=== PATIENT | female | born 1950 | race Caucasian/White ===

== ENCOUNTER 2019-01-08 20:56 | Emergency (ER) | payer MEDICARE, MEDICAID, SELFPAY ==
[2019-01-08 21:03] VITALS: BP 140/80; PULSE 93; RESP 18; TEMP 36.6; O2SAT 97
--- NOTE | 2019-01-08 21:34 | ED.GENADUL_ITS ---
Discharge Plan Disposition Patient Disposition: HOME Discharge Details Chief Complaint: RashLesion Clinical Impression: Infected sebaceous cyst Primary Care Provider: Corazon Prater ED Provider: Hima Lafleur Home Meds and New Rx's Prescriptions: New cephalexin [Keflex] 500 mg capsule 500 mg PO QID Qty: 39 RF: 0 sulfamethoxazole-trimethoprim [Bactrim DS] 800-160 mg tablet 1 tab PO DAILY Qty: 19 RF: 0 Continued citalopram [Celexa] 40 MG tablet 40 mg PO DAILY Qty: 90 RF: 1 bupropion HCl (smoking deter) 150 MG tablet extended release 12 hr 150 mg PO karol Qty: 90 RF: 1 Symbicort 10.2 GM HFA aerosol inhaler 1 puff Inhalation BID Qty: 1 RF: 6 levothyroxine 75 MCG tablet 75 mcg PO DAILY Qty: 90 RF: 3 albuterol sulfate 1.25 MG/3 ML solution for nebulization 2 puff Inhalation PRN PRNRF: 0 albuterol sulfate 2.5 MG/3 ML solution for nebulization 2.5 mg Inhalation Q4H WHILE AWAKE Qty: 30 RF: 0 albuterol sulfate [ProAir HFA] 90 mcg/actuation Hfa Aerosol Inhaler 2 puff Inhalation Q4H PRNRF: 0 Spiriva Respimat 1.25 mcg/actuation Mist 2 puff Inhalation BID RF: 0 Discharge Instructions Instructions: Abscess (ED) Additional Instructions: Please follow-up with general surgery. You should be seen in follow-up within the next few days. Call for an appointment. Please take antibiotics as prescribed. Sure to complete the full courses. Monitor skin lesion closely. Return to the ER for any worsening or new concerning symptoms including increasing pain or fever. Referrals: Anastasiia Queen MD [ [facility] STAFF PHYSICIAN] - Medical Decision Making 21:43 -- 68yo f with raised painful lesion posterior neck, now with thick white sebaceous and purulent discharge. Afebrile. Susecpt infected sebaceous cyst. Plan to anesthetize locally and incised and drain. Will give ativan for anxiety. Will give bactrim and keflex. 22:45 --discussed the risks and benefits of procedure with the patient and she provided informed consent. Incision and drainage performed. Large amount of thick white discharge expressed. Patient tolerated procedure well. Plan for follow-up with general surgery at the end of this week for reassessment. HPI General Mode of arrival: ambulatory . Date/Time Provider Initiated Documentation: 01/08/19 21:32 . Limitations to Documentation: no limitations . Information obtained by: patient . HPI Narrative: 68yo f here with painful, swollen lump on the back of her neck. Patient notes that she had a marble sized subcutaneous lump posterior neck chronically for years. She was told that the lump was a sebaceous cyst. About 1.5 weeks ago she noticed that the lump seemed to be getting larger and more painful. Yesterday lesion started to have some thick white discharge. Symptoms are severe. Constant. No modifiers. No associated fever. No other rash. Related Data Home Medications Medication Instructions Recorded Confirmed bupropion HCl (smoking deter) 150 mg PO karol #90 tab-cap 08/11/15 citalopram [Celexa] 40 mg PO DAILY #90 tab 08/11/15 01/08/19 Symbicort 1 puff INHALATION BID #1 inhaler 02/09/16 01/08/19 levothyroxine 75 mcg PO DAILY #90 tab-cap 02/26/16 01/08/19 albuterol sulfate 2 puff INHALATION PRN PRN 07/10/16 01/08/19 albuterol sulfate 2.5 mg INHALATION Q4H WHILE AWAKE 09/27/16 01/08/19 #30 vial Spiriva Respimat 2 puff INHALATION BID 01/08/19 01/08/19 albuterol sulfate [ProAir HFA] 2 puff INHALATION Q4H PRN 01/08/19 01/08/19 cephalexin [Keflex] 500 mg PO QID #39 cap 01/08/19 sulfamethoxazole-trimethoprim 1 tab PO DAILY #19 tab 01/08/19 [Bactrim DS] Previous Rx's Medication Instructions Recorded albuterol sulfate 2.5 mg INHALATION Q4H WHILE AWAKE 09/27/16 #30 vial cephalexin [Keflex] 500 mg PO QID #39 cap 01/08/19 sulfamethoxazole-trimethoprim 1 tab PO DAILY #19 tab 01/08/19 [Bactrim DS] Allergies Allergy/AdvReac Type Severity Reaction Status Date / Time codeine AdvReac Severe HYPERSENSIT Unverified 01/08/19 21:20 CONY erythromycin base AdvReac Intermediate NAUSEA Unverified 01/08/19 21:20 latex AdvReac Unverified 01/08/19 21:20 General Stated Complaint: RashLesion ANALI: 3 Review of Systems Constitutional Reports as per HPI Integumentary/Breasts Reports as per HPI [facility] Surgical History Cholecystectomy Fracture, Open Treatment Family History Mother Personal history of malignant neoplasm Father Essential hypertension Heart disease Stroke Brother Essential hypertension Grandfather Essential hypertension Heart disease Hyperlipidemia Myocardial infarction Grandfather No problems noted. Grandmother TB (tuberculosis) Grandmother Diabetes Pneumonia Social History Smoking/Tobacco Use Status: Current every day Tobacco Type: cigarettes Drug use: Never Do you feel safe in your relationship?: Yes Exam Const General: cooperative and no acute distress Neck Neck: full ROM, trachea midline, supple and no lymphadenopathy noted Resp Auscultation: clear to auscultation bilaterally, no rales, no rhonchi and no wheezes Cardio Jugular venous pressure: no JVD Rate: regular rate and not tachycardic Rhythm: regular rhythm Skin Other: 3 x 4 cm raised cutaneous lesion with thick white discharge and some purulence, tender, localized erythema Neuro General: alert and awake Psych Affect: anxious affect Course Vital Signs Temperature 36.6 C 01/08/19 21:03 Pulse 93 H 01/08/19 21:03 Respiratory Rate 18 01/08/19 21:03 Blood Pressure 140/80 01/08/19 21:03 Pulse Oximetry 97 01/08/19 21:03 Temperature 36.6 C 01/08/19 21:03 Temperature Source Temporal Artery Scan 01/08/19 21:03 Pulse 93 H 01/08/19 21:03 Respiratory Rate 18 01/08/19 21:03 Blood Pressure 140/80 01/08/19 21:03 Blood Pressure Position Sitting 01/08/19 21:03 Pulse Oximetry 97 01/08/19 21:03 Oxygen Delivery Method Room Air 01/08/19 21:03 Oxygen Flow Rate 0 01/08/19 21:03 Pain Level 3 01/08/19 21:03 Procedures Abscess I/D Site: Neck Sedation/analgesia: None Local Anesthetic: Lidocaine 1% and With Epi Amount of anesthesia used (mL): 3 Technique: Incised with #11 Blade (superficial incision made) Amount of fluid expressed (mL): 10 Irrigation: Yes Packing used?: None Complications: Pain
[2019-01-08] MEDS: Cephalexin 500 MG CAP PO (21:37)
[2019-01-08] MEDS: Sulfameth/Trimeth DS TAB 1 TAB PO (21:37)
[2019-01-08] MEDS: LORazepam 1 MG TAB PO (21:37)
== END 2019-01-08 22:50 | disposition home or self-care (01) ==
PROVIDERS: Emergency Provider Student in an Organized Health Care Education/Training Program; PCP Family Medicine
DX: L72.3 Sebaceous cyst (principal); F41.9 Anxiety disorder, unspecified
CPT/HCPCS: 36416; 82962; 99283

== ENCOUNTER → 2019-01-09 10:26 | Outpatient (BNVA) | payer MEDICARE, MEDICAID, SELFPAY | PROVIDERS: PCP Family Medicine; Referring Provider Family Medicine; Visit Provider Surgery | DX: L72.3 Sebaceous cyst (principal); L08.9 Local infection of the skin and subcutaneous tissue, unspecified | CPT/HCPCS: 10060; 99202; 99213 ==

== ENCOUNTER → 2019-01-15 11:42 | Outpatient (BNVA) | payer MEDICARE, MEDICAID, SELFPAY | PROVIDERS: PCP Family Medicine; Referring Provider Family Medicine; Visit Provider Physical Therapy Assistant | DX: Z48.817 Encounter for surgical aftercare following surgery on the skin and subcutaneous tissue (principal); L72.3 Sebaceous cyst; L08.9 Local infection of the skin and subcutaneous tissue, unspecified | CPT/HCPCS: 99211 ==

== ENCOUNTER → 2019-01-26 08:55 | Outpatient (BNVA) | payer MEDICARE, MEDICAID, SELFPAY | PROVIDERS: PCP Family Medicine; Referring Provider Family Medicine; Visit Provider Physical Therapy Assistant | DX: L72.3 Sebaceous cyst (principal) | CPT/HCPCS: 99211; 99213 ==

== ENCOUNTER → 2019-03-09 10:51 | Outpatient (BNVA) | payer MEDICARE, MEDICAID, SELFPAY | PROVIDERS: PCP Family Medicine; Referring Provider Family Medicine; Visit Provider Physical Therapy Assistant | DX: L72.9 Follicular cyst of the skin and subcutaneous tissue, unspecified (principal); J44.9 Chronic obstructive pulmonary disease, unspecified; F17.210 Nicotine dependence, cigarettes, uncomplicated | CPT/HCPCS: 11421; 12041; 99213 ==

== ENCOUNTER 2019-04-25 12:27 | Emergency (ER) | payer MEDICARE, MEDICAID, SELFPAY ==
[2019-04-25 12:30] VITALS: BP 143/54; PULSE 74; RESP 14; TEMP 36.9; O2SAT 97
--- NOTE | 2019-04-25 12:30 | W.ED.GENAD ---
Discharge Plan Disposition Patient Disposition: HOME Condition: Good Discharge Details Chief Complaint: Orthopedic Clinical Impression: Sprain of right shoulder Primary Care Provider: Corazon Prater ED Provider: Tariq Sun Home Meds and New Rx's Prescriptions: New lidocaine [Lidoderm] 1 PATCH patch 1 patch Topical Q24H Qty: 4 RF: 0 No Action citalopram [Celexa] 40 MG tablet 40 mg PO DAILY Qty: 90 RF: 1 Symbicort 10.2 GM HFA aerosol inhaler 1 puff Inhalation BID Qty: 1 RF: 6 levothyroxine 75 MCG tablet 75 mcg PO DAILY Qty: 90 RF: 3 albuterol sulfate 1.25 MG/3 ML solution for nebulization 2 puff Inhalation PRN PRNRF: 0 albuterol sulfate 2.5 MG/3 ML solution for nebulization 2.5 mg Inhalation Q4H WHILE AWAKE Qty: 30 RF: 0 albuterol sulfate [ProAir HFA] 90 mcg/actuation Hfa Aerosol Inhaler 2 puff Inhalation Q4H PRNRF: 0 Spiriva Respimat 1.25 mcg/actuation Mist 2 puff Inhalation BID RF: 0 Discharge Instructions Instructions: Shoulder Sprain (ED) Additional Instructions: At this time your x-ray shows no evidence of fracture. Please use the Lidoderm patch as directed. Please use the sling for comfort, however make sure at least 5-10 times per day you are moving the arm in all directions to maintain good shoulder mobility. Please contact your orthopedic surgeon at the [facility] for close follow-up. If you notice any worsening of your symptoms, or any new symptoms such as vomiting, diarrhea, fever, chills, shortness of breath, chest pain, numbness, weakness, or fainting , please return immediately to the emergency department for reevaluation. Please follow up with your primary care provider as soon as possible for reassessment and reevaluation. As always, it was a pleasure participating in your medical care today. Referrals: Corazon Prater [Primary Care Provider] - Medical Decision Making This is a pleasant 69-year-old female who presents today for evaluation of right shoulder pain. It occurred while she was throwing a ball. Is been present for the last week, worsened with movement. No associated numbness or tingling, no chest symptoms. Patient does have a positive Vancouver's test, she also has reproducible tenderness over the infraspinatus and scapular spine. Suspect potential labral injury with questionable rotator cuff impingement. She does demonstrate notable reduction in range of motion secondary to tight muscles. We will get an x-ray to rule out acute fracture, however I do feel that she will require orthopedic follow-up with her specialist at [facility]. 1:42 PM X-ray results have returned, no evidence of acute fracture dislocation. I still feel that the signs and symptoms of the patient clinically are consistent with potential labral injury and potential rotator cuff injury. We will give a sling for home use, however recommend regular shoulder exercises times to help keep the shoulder limber and avoid frozen shoulder syndrome. Discussed importance of follow-up with the [facility]. Recommend continued NSAIDs outpatient. I have extensively reviewed the treatment plan and discharge instructions with the patient and their family. I have addressed all patient concerns at this time. The patient and family was made aware of what symptoms to monitor for that would warrant a return to the emergency department. Discussed the plan with the patient and family, they demonstrate verbal understanding and agreement with our assessment and plan at this time. HPI General Date/Time Provider Initiated Documentation: 04/25/19 12:29. HPI Narrative: This is a 69-year-old female with a past medical history of osteoporosis and osteopenia, who presents today for evaluation of right shoulder and scapular pain. She is right-hand dominant. Patient states that one week ago she was throwing a ball with her right arm, when she felt a pop in the tear. Since then she has had notable pain in her right shoulder with movement in all directions. She denies any associated numbness tingling or weakness. Pain is located at the posterior shoulder, slightly to the scapula, but not in the humeral head. She denies any associated numbness tingling. She denies any deformity. She has taken occasional NSAIDs which does seem to slightly improve the pain but then it comes back once the NSAIDs were up. She denies any history of cardiac disease, she denies any chest pain, shortness of breath or chest tightness. She denies any other complaints or modifying factors at this time. She does see [facility] in [place] for other previous orthopedic needs. Related Data Home Medications Medication Instructions Recorded Confirmed citalopram [Celexa] 40 mg PO DAILY #90 tab 11/09/15 06/07/19 Symbicort 1 puff INHALATION BID #1 inhaler 02/09/16 03/09/19 levothyroxine 75 mcg PO DAILY #90 tab-cap 02/26/16 03/09/19 albuterol sulfate 2 puff INHALATION PRN PRN 07/10/16 03/09/19 albuterol sulfate 2.5 mg INHALATION Q4H WHILE AWAKE 09/27/16 03/09/19 #30 vial Spiriva Respimat 2 puff INHALATION BID 01/08/19 03/09/19 albuterol sulfate [ProAir HFA] 2 puff INHALATION Q4H PRN 01/08/19 03/09/19 lidocaine [Lidoderm] 1 patch TOPICAL Q24H #4 patch 04/25/19 Previous Rx's Medication Instructions Recorded albuterol sulfate 2.5 mg INHALATION Q4H WHILE AWAKE 09/27/16 #30 vial lidocaine [Lidoderm] 1 patch TOPICAL Q24H #4 patch 04/25/19 Allergies Allergy/AdvReac Type Severity Reaction Status Date / Time Antihistamines - Alkylamine AdvReac Severe Verified 04/25/19 12:33 codeine AdvReac Severe HYPERSENSIT Verified 04/25/19 12:33 CONY erythromycin base AdvReac Intermediate NAUSEA Verified 04/25/19 12:33 latex AdvReac Verified 04/25/19 12:33 General ANALI: 3 Review of Systems Review of Systems All systems reviewed & are unremarkable except as noted in HPI and below PFSH Medical History (Updated 03/09/19 @ 13:07 by MEY Ayers) Infected sebaceous cyst of skin (Acute ~01/08/19) Surgical History (Updated 01/09/19 @ 10:55 by Anastasiia Queen MD) Cholecystectomy Fracture, Open Treatment Status post incision and drainage (Acute ~01/09/19) Social History (Updated 01/09/19 @ 10:56 by Anastasiia Queen MD) Smoking/Tobacco Use Status: Current every day Tobacco Type: cigarettes Alcohol Intake: current Alcohol Intake frequency: a few times a week Drug use: Never Substance use type: does not use Household members: none current occupation: none Other: Do you feel safe at home: Yes Do you feel safe in your relationship?: Yes Exam Narrative Exam Narrative: 1.Const: Well-nourished, Well-developed, appearing stated age 2.Eyes: PERRL, no conjunctival injection, and symmetrical lids. 3.ENT: Atraumatic external nose and ears. Moist MM. Neck: Symmetric, trachea midline, No thyromegaly. 4.CVS: +S1/S2, No murmurs or gallops. Peripheral pulses 2+ and equal in all extremities. Brisk capillary refill in all extremities. 5.RESP: Unlabored respiratory effort. Clear to auscultation bilaterally. No wheezes rales or rhonchi 6.GI: Soft, Nontender/Nondistended, No hepatosplenomegaly. No guarding or rebound. 7.MSK: Normocephalic/Atraumatic, Extremities w/o deformity. No cyanosis or clubbing, notable restriction in movement for the right shoulder. Restriction in internal and external rotation flexion and extension. Notable worsening of pain with use of the triceps muscle, particularly at the proximal insertion point. Pain is significantly worsened with posterior extension of the shoulder, and abduction. Notable worsening of pain with empty can test,/thumbs down suggesting positive Vancouver's test. No significant pain with thumbs up. Notable reproducible tenderness on palpation of the scapular spine, and the infraspinatus. Minimal tenderness over the supraspinatus. 8.Skin: Warm, Dry. No rashes or lesions. 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 Sensation grossly intact, no focal neurologic deficits. 10.Psych: (AAO) x3. Appropriate mood and affect
--- NOTE | 2019-04-25 12:43 | DI.RAD_ITS ---
SYMPTOMS/DIAGNOSIS: RIGHT SHOULDER AND SCAPULAR PAIN AFTER THROWING RIGHT SHOULDER: Multiple views. No acute fracture or dislocation is seen. Mild degenerative changes are seen at the acromioclavicular joint. The soft tissues are unremarkable. IMPRESSION: No acute abnormality.
[2019-04-25] MEDS: Lidocaine 5% Patch 1 PATCH TP (13:03)
== END 2019-04-25 14:11 | disposition home or self-care (01) ==
PROVIDERS: Emergency Provider Student in an Organized Health Care Education/Training Program; PCP Family Medicine
DX: S43.401A Unspecified sprain of right shoulder joint, initial encounter (principal); X50.3XXA Overexertion from repetitive movements, initial encounter
CPT/HCPCS: 99283; 73030

== ENCOUNTER 2019-06-14 08:20 | Outpatient (CLI) | payer MEDICARE, SELFPAY ==
[2019-06-14 09:10] LABS: Abs Immature Grans 0.01 k/cumm (0.0-0.09); Absolute Basophil Count 0.01 k/cumm (0.0-0.2); Absolute Eosinophil Count 0.02 k/cumm (0.0-0.7); Absolute Lymphocyte Count 1.21 k/cumm (1.2-3.4); Absolute Monocyte Count 0.58 k/cumm (0.11-0.7); Absolute Neutrophil Count 5.05 k/cumm (1.2-6.7); Basophils % 0.1; Eosinophils % 0.3; HCT 43.2 % (36.0-46.0); HGB 14.1 g/dL (12.0-15.5); Immature Grans % 0.1; Lymphocytes % 17.6; Mean Corp. HGB Concentration 32.6 g/dL (32.0-36.0); Mean Corpuscular Hemoglobin 29.9 pg (27.0-33.0); Mean Corpuscular Volume 91.7 fL (80-95); Mean Platelet Volume 9.4 fL (8.0-11.0); Monocytes % 8.4; Neutrophils % 73.5; Platelet Count 284 x1000/uL (130-400); RBC 4.71 m/cumm (4.00-5.20); RBC Distribution Width 13.5 % (11.7-14.6); White Blood Cell Count 6.88 k/cumm (4.4-10.8)
[2019-06-14 09:55] LABS: ALT 18 U/L (14-59); AST 9 U/L (15-37); Albumin 3.8 g/dL (3.4-5.0); Alkaline Phosphatase 77 U/L (46-116); Anion Gap 7.9 mmol/L (3-11); BUN 17 mg/dL (7-18); Bilirubin, Total 0.4 mg/dL (0.2-1.0); CO2 27.1 mmol/L (21.0-32.0); CREATININE 1.05 mg/dL (0.55-1.02); Calcium 9.2 mg/dL (8.5-10.1); Calculated LDL 149 mg/dL; Chloride 103 mmol/L (98-107); Cholesterol 218 mg/dL (50-200); Estimated GFR 52.12 (mL/min/1.73m2); Glucose 107 mg/dL (70-100); HDL Cholesterol 52 mg/dL (40-60); Potassium 4.5 mmol/L (3.5-5.1); Sodium 138 mmol/L (136-145); Total Protein 6.9 g/dL (6.4-8.2); Triglyceride 85 mg/dL (30-150)
[2019-06-14 10:14] LABS: Vitamin D 25 Total 41.7 ng/ml (30-100)
[2019-06-14 10:28] LABS: C-Reactive Protein 0.51 mg/dL (0.0-0.3)
== END 2019-06-14 08:40 ==
PROVIDERS: PCP Family Medicine; Visit Provider Family Medicine
DX: E03.9 Hypothyroidism, unspecified (principal); E78.5 Hyperlipidemia, unspecified; E55.9 Vitamin D deficiency, unspecified; M85.88 Other specified disorders of bone density and structure, other site
CPT/HCPCS: 36415; 80053; 80061; 82306; 85025; 86140

== ENCOUNTER 2020-06-10 03:27 | Outpatient (CLI) | payer MEDICARE, MEDICAID, SELFPAY ==
--- NOTE | 2020-06-10 13:58 | DI.CTLCSR_ITS ---
EXAM: CT CHEST LUNG CANCER SCREEN CLINICAL HISTORY: SMOKER, F17.210, NICOTINE DEPENDENCE TECHNIQUE: Imaging Protocol: Axial computed tomography images with coronal and sagittal reformatted images were created and reviewed COMPARISON: No exams were available for comparison FINDINGS: Tracheobronchial tree: Patent where visualized. Mediastinum and Nereida: No dominant adenopathy or fluid collection. Pulmonary parenchyma: No consolidation or dominant measurable mass. Bilateral apical scarring. Mild emphysematous changes. Lung Nodules: None. Pleura: No effusion or pneumothorax. Heart: The heart is not dilated. Minimal coronary artery calcifications are seen. Aorta: Thoracic aorta non-dilated.Mild calcification. Upper abdomen: Status post cholecystectomy. Bones: Mild degenerative disc changes. . IMPRESSION: Normal low dose CT lung screening Lung RADS Cat 1 - Negative: No nodules and definitely benign nodules modifier S Lung-RADS 1.0 CATEGORIES: Category 0 - Prior chest CT exam(s) being located for comparison. Category 1 - Annual screening in 12 months. No nodules or definitely benign nodules. Category 2 - Annual screening in 12 months. Benign appearance. Nodules with low likelihood of becomin g active cancer. Category 3 - 6-month follow-up. Probably benign. Short-term follow-up suggested. Nodules with low lik elihood of becoming active cancer. Category 4A - 3-month follow-up and CT/PET if >8 mm in size. Suspicious finding. Findings which requi re additional testing. Category 4B - Findings which require additional testing and tissue sampling. Suspicious finding. C Added to Any of the Above - History of prior lung cancer screening. S Added to Any of the Above - Significant unexpected other finding. RADIATION DOSE DELIVERED: Total DLP DATA REPOSITORY: All CT scans at this facility are submitted to the National Radiology Data Registry (NRDR) Dose Index Registry (DIR) with the [employer] ([employer]). RADIATION OPTIMIZATION: All CT scans at this facility use at least one of these dose optimization te chniques: automated exposure control; mA and/or kV adjustment per patient size (includes targeted exa ms where dose is matched to clinical indication); or iterative reconstruction.
== END 2020-06-10 03:47 ==
PROVIDERS: PCP Family Medicine; Visit Provider Internal Medicine
DX: F17.210 Nicotine dependence, cigarettes, uncomplicated (principal)
CPT/HCPCS: G0297

== ENCOUNTER 2021-01-02 05:37 | Emergency (ER) | payer OTHER, MEDICAID, SELFPAY ==
--- NOTE | 2021-01-02 05:30 | DI.RAD_ITS ---
EXAM: XR PELVIS AP CLINICAL HISTORY: fall, right hip pain TECHNIQUE: COMPARISON: CR RIGHT HIP COMPLETE from 02/23/2013 CR,XR XR FEMUR RT from 01/02/2021 FINDINGS: An AP view of the pelvis and four views of the right femur were obtained. There are gamma nails in p osition in the femurs bilaterally. There are mild degenerative changes of the hips and SI joints. N o acute fracture is identified. Please see accompanying CT report. IMPRESSION: RADIATION DOSE DELIVERED: Total DLP
[2021-01-02 05:38] VITALS: BP 152/76; PULSE 77; RESP 18; TEMP 36.4; O2SAT 92
--- NOTE | 2021-01-02 05:42 | ED.GENADUL_ITS ---
Discharge Plan Disposition Patient Disposition: HOME Condition: Improving Discharge Details Clinical Impression: Contusion, Lumbar contusion Primary Care Provider: Corazon Prater ED Provider: Patrick Tidwell Home Meds and New Rx's Prescriptions: Continued citalopram [Celexa] 40 MG tablet 40 mg PO DAILY Qty: 90 RF: 1 budesonide-formoterol [Symbicort] 10.2 GM HFA aerosol inhaler 1 puff Inhalation BID Qty: 1 RF: 6 levothyroxine 75 MCG tablet 75 mcg PO DAILY Qty: 90 RF: 3 albuterol sulfate 1.25 MG/3 ML solution for nebulization 2 puff Inhalation PRN PRNRF: 0 albuterol sulfate 2.5 MG/3 ML solution for nebulization 2.5 mg Inhalation Q4H WHILE AWAKE Qty: 30 RF: 0 Trelegy Ellipta 100-62.5-25 mcg blister with device 2 inh INHALATION QAM RF: 0 bupropion HCl 150 mg tablet sustained-release 12 hr 300 mg PO QAM RF: 0 albuterol sulfate [ProAir HFA] 90 mcg/actuation Hfa Aerosol Inhaler 2 puff Inhalation Q4H PRNRF: 0 Spiriva Respimat 1.25 mcg/actuation Mist 2 puff Inhalation BID RF: 0 lidocaine [Lidoderm] 1 PATCH patch 1 patch Topical Q24H Qty: 4 RF: 0 Discharge Instructions Instructions: Contusion in Adults (ED) Additional Instructions: We will ask for home health to arrange physical therapy for you in your home to assist with movement on your stairs. Please use your front wheeled walker at home, as discussed with physical therapy. Continue your regular medications. May use Tylenol 650 mg every 4-6 hours and/or ibuprofen 400 mg every 8 hours if needed in addition to the Tylenol. Medical Decision Making <Tariq Sun DO - Last Filed: 01/02/21 07:16> 70-year-old female with a past medical history of brittle bones, previous bilateral hip fractures with pins, previous left knee fracture, thyroid dysfunction, reactive airway disease, presents today for evaluation of right hip pain. Patient got up this morning and slipped down the stairs landing on her right buttock and right hip. She was unable to get up and apply pressure to the right lower extremity secondary to pain in the buttock/hip. She did not strike her head. She did not lose consciousness. Aside for the pain in the hip she has no other pain anywhere else. She recalls the entire event. She has no blood thinners that she is on. Previous right hip surgery was performed by Dr. Alba in the past. Left hip surgery was performed in [facility] while on vacation. Physical exam demonstrates no evidence of trauma throughout the body except for mild tenderness over the right hip, pain is worse with logroll of the right hip, however she is able to actually flex and extend the hip without significant pain. She is not able to bear weight. Patient is neurovascularly intact distal to the injury site. Suspect mild fracture the right hip. We will get basic screening labs, x-ray, manage the patient's pain as needed, monitor closely and reassess. 7:15 AM X-ray results per virtual radiology read as negative. On reassessment patient continues to have pain, she is unable to get up or even bear weight. Applying mild pressure to her heel causes immediate pain in her right hip. I suspect occult fracture or loosening of the orthopedic components. Will get CT scan. Patient will be signed out to my colleague Dr. Tidwell for reassessment after further imaging. Patient does not want any more pain medication at this time. IMPRESSION: Compression screw and intramedullary duong with locking screw distally stabilizing the proximal right femur. No acute fracture is visualized. Thank you for allowing us to participate in the care of your patient. Dictated and Authenticated by: Mukund Posada MD 01/02/2021 7:02 AM Eastern Time ([place] & [place]) IMPRESSION: 1. No acute process. 2. Intramedullary duong and compression screw stabilizing the right and left femurs. No acute fracture clearly delineated. Consider additional views if indicated. Thank you for allowing us to participate in the care of your patient. Dictated and Authenticated by: Mukund Posada MD 01/02/2021 7:01 AM Eastern Time ([place] & [place]) <Patrick Tidwell MD - Last Filed: 01/02/21 09:27> CT scan negative for evidence of fracture. Patient able to sit up in bed, her pain does seem to localize to posterior superior pelvic/lower lumbar region. She was given Toradol in addition to Tylenol. Patient was seen by physical therapy. She was able to ambulate with a wheeled walker but due to ongoing pain she will require home health physical therapy to assist with her stairs at home and also to have a front wheel walker. I will ask care management to assist me with this. She is stable and improved. HPI <Tariq Sun, - Last Filed: 01/02/21 07:16> General Date/Time Provider Initiated Documentation: 01/02/21 05:41 . HPI Narrative: 70-year-old female with a past medical history of brittle bones, previous bilateral hip fractures with pins, previous left knee fracture, thyroid dysfunction, reactive airway disease, presents today for evaluation of right hip pain. Patient got up this morning and slipped down the stairs landing on her right buttock and right hip. She was unable to get up and apply pressure to the right lower extremity secondary to pain in the buttock/hip. She did not strike her head. She did not lose consciousness. Aside for the pain in the hip she has no other pain anywhere else. She recalls the entire event. She has no blood thinners that she is on. Previous right hip surgery was performed by Dr. Alba in the past. Left hip surgery was performed in [facility] while on vacation. Related Data Home Medications Medication Instructions Recorded Confirmed citalopram [Celexa] 40 mg PO DAILY #90 tab 08/11/15 01/02/21 budesonide-formoterol [Symbicort] 1 puff INHALATION BID #1 inhaler 02/09/16 03/09/19 levothyroxine 75 mcg PO DAILY #90 tab-cap 02/26/16 01/02/21 albuterol sulfate 2 puff INHALATION PRN PRN 07/10/16 03/09/19 albuterol sulfate 2.5 mg INHALATION Q4H WHILE AWAKE 09/27/16 03/09/19 #30 vial Spiriva Respimat 2 puff INHALATION BID 01/08/19 01/02/21 albuterol sulfate [ProAir HFA] 2 puff INHALATION Q4H PRN 01/08/19 03/09/19 lidocaine [Lidoderm] 1 patch TOPICAL Q24H #4 patch 04/25/19 Trelegy Ellipta 2 inh INHALATION QAM 01/02/21 01/02/21 bupropion HCl 300 mg PO QAM 01/02/21 01/02/21 Previous Rx's Medication Instructions Recorded albuterol sulfate 2.5 mg INHALATION Q4H WHILE AWAKE 09/27/16 #30 vial lidocaine [Lidoderm] 1 patch TOPICAL Q24H #4 patch 04/25/19 Allergies Allergy/AdvReac Type Severity Reaction Status Date / Time Antihistamines - Alkylamine AdvReac Severe Verified 01/02/21 05:44 codeine AdvReac Severe HYPERSENSIT Verified 01/02/21 05:44 CONY erythromycin base AdvReac Intermediate NAUSEA Verified 01/02/21 05:44 latex AdvReac Verified 01/02/21 05:44 General ANALI: 3 Review of Systems <Tariq Sun DO - Last Filed: 01/02/21 07:16> All systems reviewed & are unremarkable except as noted in HPI and below PFSH <Tariq Sun DO - Last Filed: 01/02/21 07:16> Medical History Infected sebaceous cyst of skin (~01/08/19) Surgical History Cholecystectomy Fracture, Open Treatment RIGHT HIP ORIF 5.17.13 Status post incision and drainage (~01/09/19) Family History Mother Personal history of malignant neoplasm brain Father , CHF at age 81. Essential hypertension Heart disease Stroke Brother Essential hypertension Grandfather Essential hypertension Heart disease Hyperlipidemia Myocardial infarction Grandfather No problems noted. Grandmother TB (tuberculosis) Grandmother Diabetes Pneumonia Social History Smoking/Tobacco Use Status: Current every day Tobacco Type: cigarettes Smoking risk assessment performed?: Yes Alcohol Intake: current Alcohol Intake frequency: a few times a week Drug use: Never Substance use type: does not use Household members: none current occupation: none Other: Do you feel safe at home: Yes Do you feel safe in your relationship?: Yes Exam <Tariq Sun DO - Last Filed: 01/02/21 07:16> Narrative Exam Narrative: 1.Const: Well-nourished, Well-developed, appearing stated age 2.Eyes: PERRL, no conjunctival injection, and symmetrical lids. 3.ENT: Atraumatic external nose and ears. Moist MM. Neck: Symmetric, trachea midline, No thyromegaly. 4.CVS: +S1/S2, No murmurs or gallops. Peripheral pulses 2+ and equal in all e xtremities. Brisk capillary refill in all extremities. 5.RESP: Unlabored respiratory effort. Clear to auscultation bilaterally. No wheezes rales or rhonchi 6.GI: Soft, Nontender/Nondistended, No hepatosplenomegaly. No guarding or rebound. 7.MSK: Normocephalic, Extremities w/o deformity, no shortening or rotation of the right lower extremity in comparison to the left. Patient is able to flex and move around the right hip, without significant pain. However she does have notable pain with logroll of the right lower extremity. The pain radiates to just posterior from the greater trochanter on the right. Pelvis is stable. No pain in the left lower extremity upper extremities or midline tenderness of the spine. No other evidence of trauma. 8.Skin: Warm, Dry. No rashes or lesions. 9.Neuro: operating room specialist II-XII grossly intact. Sensation grossly intact, no focal neurologic deficits. 10.Psych: (AAO) x3. Appropriate mood and affect Sign Out <Tariq Sun DO - Last Filed: 01/02/21 07:16> Sign Out Data: Sign Out Comment: Fall, pain in right hip, previous duong in both hips. History of brittle bones. Notable pain even after negative x-rays. Suspect occult fracture. Reassess after CT scan. Last updated by Tariq Sun DO at 01/02/21 07:21
[2021-01-02 05:52] LABS: Abs Immature Grans 0.01 10^3/uL (0.0-0.06); Absolute Basophil Count 0.03 10^3/uL (0.0-0.2); Absolute Eosinophil Count 0.06 10^3/uL (0.0-0.7); Absolute Lymphocyte Count 1.33 10^3/uL (1.2-3.4); Absolute Monocyte Count 0.59 10^3/uL (0.1-0.8); Absolute Neutrophil Count 5.37 10^3/uL (1.2-6.7); Basophils % 0.4; Eosinophils % 0.8; HCT 39.6 % (36.0-46.0); HGB 13.1 g/dL (11.2-15.7); Immature Grans % 0.1; MCHC 33.1 % (32.0-36.0); MCV 93.8 fL (80-95); MPV 9.2 fL (8.0-11.0); Neutrophils % 72.7; Nucleated RBC 0 %; Platelet Count 221 10^3/uL (130-400); RBC 4.22 10^6/uL (3.93-5.22); RDW 12.6 % (11.7-14.6); RDW-SD 43.2 fL; WBC 7.39 10^3/uL (4.4-10.8)
[2021-01-02] MEDS: Ondansetron 4 MG/2 ML VIAL IVP (05:52)
[2021-01-02] MEDS: ACETAMINOPHEN 1,000 MG/100 ML BTL 400 MG IVPB (05:57)
[2021-01-02 06:06] LABS: ALT 33 U/L (14-59); AST 19 U/L (15-37); Albumin 3.8 g/dL (3.4-5.0); Alkaline Phosphatase 93 U/L (46-116); Anion Gap 9.1 mmol/L (3-11); BUN 18 mg/dL (7-18); Bilirubin, Total 0.3 mg/dL (0.2-1.0); CO2 25.9 mmol/L (21.0-32.0); CREATININE 1.1 mg/dL (0.55-1.02); Calcium 9.2 mg/dL (8.5-10.1); Chloride 103 mmol/L (98-107); Estimated GFR 49.25 (mL/min/1.73m2); Glucose 127 mg/dL (74-106); Potassium 4.6 mmol/L (3.5-5.1); Sodium 138 mmol/L (136-145); Total Protein 7.3 g/dL (6.4-8.2)
[2021-01-02 06:07] LABS: Prothrombin Time 10.3 sec (9.3-11.0)
--- NOTE | 2021-01-02 07:01 | DI.VRAD_ITS ---
PROCEDURE INFORMATION: Exam: XR Pelvis Exam date and time: 01/02/2021 6:27 AM Age: 70 years old Clinical indication: Other: Fall, right hip pain; Prior surgery; Surgery date: 6+ months; Surgery type: Femur nail TECHNIQUE: Imaging protocol: XR pelvis. Views: 1 or 2 view. COMPARISON: No relevant prior studies available. FINDINGS: Bones/joints: osseous structures of the pelvis without an acute process. rami are intact. Sacroiliac joints without separation/diastases/fracture. Iliac bones unremarkable/noncontributory Degenerative changes within the hips: Degenerative changes within the visualized portions of the caudal aspect of the lumbar spine. Moderate to severe Intramedullary duong and compression screw stabilizing the right and left femurs. No acute fracture clearly delineated. Consider additional views if indicated. Soft tissues: Unremarkable. IMPRESSION: 1. No acute process. 2. Intramedullary duong and compression screw stabilizing the right and left femurs. No acute fracture clearly delineated. Consider additional views if indicated. Dictated and Authenticated by: Mukund Posada MD. Ordering:SAMMY Potter MD
--- NOTE | 2021-01-02 07:02 | DI.VRAD_ITS ---
PROCEDURE INFORMATION: Exam: XR Right Femur Exam date and time: 01/02/2021 6:27 AM Age: 70 years old Clinical indication: Other: Fall, right hip pain; Prior surgery; Surgery date: 6+ months; Surgery type: Femur nail TECHNIQUE: Imaging protocol: XR Right femur. Views: 2 views. COMPARISON: No relevant prior studies available. FINDINGS: Bones/joints: Compression screw and intramedullary duong with locking screw distally stabilizing the proximal right femur. No acute fracture is visualized. Soft tissues: Unremarkable. IMPRESSION: Compression screw and intramedullary duong with locking screw distally stabilizing the proximal right femur. No acute fracture is visualized. Dictated and Authenticated by: Mukund Posada MD. Ordering:SAMMY Potter MD
--- NOTE | 2021-01-02 07:11 | DI.CT_ITS ---
EXAM: CT PELVIC WO CLINICAL HISTORY: suspect right hip fracture TECHNIQUE: COMPARISON: No exams were available for comparison FINDINGS: CT examination of the pelvis was performed without contrast administration. There are gamma nails in place in the proximal femurs bilaterally. There is no evidence of acute periprosthetic fracture or other fracture involving the hips or pelvis. Pelvic soft tissues are unremarkable, no gross hematoma . No pelvic or inguinal adenopathy, no free fluid in the pelvis. IMPRESSION: No evidence of acute periprosthetic fracture. RADIATION DOSE DELIVERED: 408.71mGy.cm Total DLP RADIATION OPTIMIZATION: All CT scans at this facility use at least one of these dose optimization te chniques: automated exposure control; mA and/or kV adjustment per patient size (includes targeted exa ms where dose is matched to clinical indication); or iterative reconstruction.
[2021-01-02 07:13] VITALS: BP 136/72; PULSE 65; RESP 18; O2SAT 94
[2021-01-02] MEDS: Ketorolac 15 MG/ML VIAL IVP (08:30)
--- NOTE | 2021-01-02 08:43 | PT.INIE ---
Date of service: 01/02/21 Time of Service: 08:43 PT Notes Visit [facility] Inpatient Initial Evaluation Date: 01/02/2021 Referring Doctor: Patrick Tidwell MD PT Orders: PT CONSULT: Safety consult for D/C Precautions: Fall. Standard. Activity as tolerated. Patient Profile/Admitting Diagnosis: Nyasia is a 70-year-old female who presented to the ED earlier today with right hip pain sustained from a fall this past midnight which caused her to land on her right hip. X-rays and CT scans of both hips showed no fracture/dislocation with hardware in both hips well in place. PMHX: Medical History Infected sebaceous cyst of skin (~01/08/19) Surgical History Cholecystectomy Fracture, Open Treatment RIGHT HIP ORIF 5.17.13 Status post incision and drainage (~01/09/19) Social History/Home Situation: Lives with family members in a private home with 4 steps to enter and a rail on 1 side going up. She has another flight of steps with rails on both sides to the second floor where her bedroom is. Independent with all aspects of ADLs prior to today's admission. Equipment Owned/DME: None Subjective: Agreeable to PT consult. Reports 3?4/10 pain in the right hipat rest which increases with movement of about 6-7/10. Receptive to relaxation exercises given to her as well as to recommendations of sending in home health PT to provide stairs training at home and relaxation progression as needed. Feels comfortable and stable using the front wheel walker during ambulation. Objective: General Observation: Supine in bed. Appears anxious about movement. Mental Status: Alert and oriented x4 Pain: 3?4/10 at rest, 6?7/10 with movement ROM: Right Lower Extremity: Hip flexion WFL. Hip abduction WFL. Knee flexion WFL. Ankle dorsiflexion WFL. Ankle plantarflexion WFL. Left Lower Extremity: Hip flexion WFL. Hip abduction WFL. Knee flexion WFL. Ankle dorsiflexion WFL. Ankle plantarflexion WFL. Strength: Right Lower Extremity: Hip flexors 3/5. Hip abductors 3/5. Knee flexors 5/5. Knee extensors 3/5. Ankle dorsiflexors 5/5. Ankle plantarflexors 5/5. Left Lower Extremity: Hip flexors 4/5. Hip abductors 4/5. Knee flexors 5/5. Knee extensors 5/5. Ankle dorsiflexors 5/5. Ankle plantarflexors 5/5. Sensation: Intact as to pain and pressure on bilateral lower extremities. Bed Mobility/Transfers: Rolling minimal assist Supine to sit minimal assist Sit to supine minimal assist Sit to stand contact-guard assist Stand to sit contact-guard assist Bed to chair contact-guard assist Chair to bed contact-guard assist Gait: Needed 100 feet of level surface ambulation using a front wheeled walker with just standby assist with pain report of 6?7/10 that decreased to 3?4/10 with rest. Gait antalgic. Gait speed reduced. Balance: Static Sitting: Good Dynamic Sitting: Fair Static Standing: Fair Dynamic Standing: Fair Special Tests: Mobility Limitations Standardized Measure [facility]-P[facility] 6 clicks Basic Mobility Inpatient Short Form: Raw Score: 18 CMS Score: 47% deficit Informed Consent/Education: Patient instructed in purpose of PT consult and plan of care. Instructed on performance of relaxation exercises for the pelvic/ hip muscle area consisting of neutral setting exercises combined with posterior pelvic tilt and abdominal bracing as well as pelvic rocking exercises. Assessment: Nyasia requires the use of a front wheeled walker for all mobility ADL performance to maximize independence and reduce fall risk at home. She is receptive to relaxation exercises for the knees and bilateral hips and demonstrates good mastery of them. She is amenable to having home health come in to continue with mobility progression as well as stair negotiation training to reduce fall risk at home. Patient will benefit from the use of a front wheeled walker prior to discharge. Patient presents with clinical signs and symptoms consistent with current/admitting diagnoses that have resulted to mobility limitations, gait instability, generalized weakness, and impairment of motor control as demonstrated by the following impairment level findings: 1. Decreased strength to B hip major muscle groups 2. Impaired sitting/standing balance 3. Impaired activity tolerance Impairments are contributing to the following functional limitations: 1. Dependent bed mobility skills 2. Increased dependence with transfers 3. Inability to safely ambulate without assistive device 4. Increase completion time for mobility ADL performance 5. Increased fall risk 6. Inability to negotiate steps alone safely Patient is assessed as a 13193 moderate complexity based on the following: History: 70-year-old female with impairment level findings, functional limitations, and past medical history as indicated above Examination: Demonstrable impairment in strength, balance, and mobility level with underlying impairments and functional limitations as documented above Presentation:Evolving Decision Makin moderate complexity Goals: N/A. PT evaluation and 1 treatment session only for HEP instruction and mobility ADL training using the front wheeled walker. Plan of Care/Treatment Plan: N/A. PT evaluation and 1 treatment session only for HEP instruction and mobility ADL training using the front wheeled walker. DISCHARGE RECOMMENDATIONS: Home when medically cleared by MD. Will require use of front wheeled walker to reduce fall risk at home. Home health PT services to assess home safety and provide stair negotiation training. TREATMENT CODE/TIME: 22384 x 20 minutes, 16760 x 17 minutes beginning at 8:43 AM. Thank you for the opportunity to participate in the care of this patient. Libra Almodovar PT, DPT, CLT [facility] [place], [place]
[2021-01-02 09:39] VITALS: BP 121/58; PULSE 72; RESP 18; O2SAT 95
--- NOTE | 2021-01-02 13:46 | PDOC.ERCMPRO ---
- If Service Date Differs Date of service: 01/02/21 Time of Service: 13:46 Care Management Progress Note Nyasia is seen in the ED for a lumbar contusion. At the request of ED provider, CM coordinates a referral to [facility] for new PT services.
== END 2021-01-02 11:02 | disposition home or self-care (01) ==
PROVIDERS: Student in an Organized Health Care Education/Training Program; Emergency Provider Emergency Medicine; PCP Family Medicine
DX: S30.0XXA Contusion of lower back and pelvis, initial encounter (principal); M25.551 Pain in right hip; W10.8XXA Fall (on) (from) other stairs and steps, initial encounter
CPT/HCPCS: 36415; 73552; 80053; 96365; 96375; 97162; 97530; 99284; 72170; 72192; 85025; 85610; 85730; J0131; J1885; J2405

== ENCOUNTER → 2022-03-04 01:10 | Outpatient (CLI) | payer MEDICARE, MEDICAID, SELFPAY ==
--- NOTE | 2022-03-04 07:15 | DI.CTLCSR_ITS ---
Exam(s) CT CHEST LUNG CANCER SCREEN EXAM: CT CHEST LUNG CANCER SCREEN CLINICAL HISTORY: Screening for lung cancer,former smoker, z87.891. TECHNIQUE: Imaging Protocol: Low Dose Technique CONTRAST MATERIAL: None COMPARISON: CT CT CHEST LUNG CANCER SCREEN from 06/10/2020 FINDINGS: CHEST: LUNGS: Scarring in both lung apices is unchanged. Also unchanged scarring in the lateral segment of the right middle lobe. No new confluent infiltrates. There are no ominous pulmonary nodules. No pl eural effusions. MEDIASTINUM: There is no obvious hilar nor mediastinal adenopathy. CARDIAC: Heart size is normal. There is no pericardial effusion.Caliber of the thoracic aorta is wit hin normal limits. OTHER: Gallbladder surgically absent. OSSEOUS: No significant osseous lesions.. IMPRESSION: 1. No new concerning pulmonary nodules. 2. No new infiltrates nor pleural effusions nor obvious intrathoracic adenopathy. 3. Lung RADS Cat 1 - Negative: No nodules and definitely benign nodules Lung-RADS 1.0 CATEGORIES: Category 0 - Prior chest CT exam(s) being located for comparison. Category 1 - Annual screening in 12 months. No nodules or definitely benign nodules. Category 2 - Annual screening in 12 months. Benign appearance. Nodules with low likelihood of becomin g active cancer. Category 3 - 6-month follow-up. Probably benign. Short-term follow-up suggested. Nodules with low lik elihood of becoming active cancer. Category 4A - 3-month follow-up and CT/PET if >8 mm in size. Suspicious finding. Findings which requi re additional testing. Category 4B - Findings which require additional testing and tissue sampling. Category 4X - Category 3 or 4 nodules with additional features or imaging findings that increases the suspicion of malignancy. Modifier S- Potentially clinically significant findings (non lung cancer) RADIATION DOSE DELIVERED: 81.49mGy.cm Total DLP 1.84mGyCTDIvol DATA REPOSITORY: All CT scans at this facility are submitted to the National Radiology Data Registry (NRDR) Dose Index Registry (DIR) with the [employer] (ACR). RADIATION OPTIMIZATION: All CT scans at this facility use at least one of these dose optimization te chniques: automated exposure control; mA and/or kV adjustment per patient size (includes targeted exa ms where dose is matched to clinical indication); or iterative reconstruction.
== END ==
PROVIDERS: PCP Family Medicine; Visit Provider Student in an Organized Health Care Education/Training Program
DX: Z87.891 Personal history of nicotine dependence (principal); Z12.2 Encounter for screening for malignant neoplasm of respiratory organs
CPT/HCPCS: 71271

== ENCOUNTER 2023-03-25 00:59 | Outpatient (CLI) | payer MEDICARE, MEDICAID, SELFPAY ==
--- NOTE | 2023-03-25 08:00 | DI.CTLCSR_ITS ---
Exam(s) CT CHEST LUNG CANCER SCREEN EXAM: CT CHEST LUNG CANCER SCREEN CLINICAL HISTORY: Screening for lung cancer, FORMER SMOKER, Z87.891 TECHNIQUE: Imaging Protocol: Axial computed tomography images with coronal and sagittal reformatted images were created and reviewed COMPARISON: CT CT CHEST LUNG CANCER SCREEN from 03/04/2022 FINDINGS: Tracheobronchial tree: Patent where visualized. Pulmonary parenchyma: No consolidation or dominant measurable mass. There is bilateral apical scarrin g. Mild centrilobular emphysematous changes are present. Lung Nodules: None. Mediastinum and Nereida: No dominant adenopathy or fluid collection. The esophagus is unremarkable.There is a small hiatal hernia. Thyroid gland: Unremarkable. Lymph nodes: Unremarkable. Pleura: No effusion or pneumothorax. Heart: The heart is not dilated. Mild coronary artery calcification is present. No pericardial effus ion. Aorta: Thoracic aorta non-dilated.Atherosclerosis is present. Upper abdomen: Status post cholecystectomy. Soft Tissues: Unremarkable. Bones: Within normal limits. IMPRESSION: No pulmonary nodules. Lung RADS Cat 1 - Negative: No nodules and definitely benign nodules Lung-RADS 1.0 CATEGORIES: Category 0 - Prior chest CT exam(s) being located for comparison. Category 1 - Annual screening in 12 months. No nodules or definitely benign nodules. Category 2 - Annual screening in 12 months. Benign appearance. Nodules with low likelihood of becomin g active cancer. Category 3 - 6-month follow-up. Probably benign. Short-term follow-up suggested. Nodules with low lik elihood of becoming active cancer. Category 4A - 3-month follow-up and CT/PET if >8 mm in size. Suspicious finding. Findings which requi re additional testing. Category 4B - Findings which require additional testing and tissue sampling. Suspicious finding. Category 4X - Category 3 or 4 nodules with additional features or imaging findings that increases the suspicion of malignancy. Modifier S- Potentially clinically significant finding. (Non lung cancer) RADIATION DOSE DELIVERED: 74.95mGy.cm Total DLP 74.95mGy.cmTotal DLP DATA REPOSITORY: All CT scans at this facility are submitted to the National Radiology Data Registry (NRDR) Dose Index Registry (DIR) with the [employer] (ACR). RADIATION OPTIMIZATION: All CT scans at this facility use at least one of these dose optimization te chniques: automated exposure control; mA and/or kV adjustment per patient size (includes targeted exa ms where dose is matched to clinical indication); or iterative reconstruction.
== END 2023-03-25 01:19 ==
PROVIDERS: PCP Family Medicine; Visit Provider Physician Assistant Surgical
DX: Z87.891 Personal history of nicotine dependence (principal); Z12.2 Encounter for screening for malignant neoplasm of respiratory organs
CPT/HCPCS: 71271

== ENCOUNTER → 2023-08-22 10:21 | Outpatient (BNVA) | payer MEDICARE, MEDICAID, SELFPAY | PROVIDERS: PCP Family Medicine; Referring Provider Family Medicine; Visit Provider Student in an Organized Health Care Education/Training Program | DX: J44.9 Chronic obstructive pulmonary disease, unspecified (principal); Z79.899 Other long term (current) drug therapy; F17.210 Nicotine dependence, cigarettes, uncomplicated | CPT/HCPCS: 99214 ==

== ENCOUNTER → 2024-04-06 01:55 | Outpatient (CLI) | payer MEDICARE, MEDICAID, SELFPAY ==
--- OUTSIDE RECORDS SUMMARY | 2024-04-06 01:57 | XMS_ITS | Continuity of Care Document ---
Author Name Unknown Organization [facility] Ambulatory Clinics Address [address] [place] [address] Care Team Providers Care Hr Internship Name Role Phone Ernesto Orozco APRNah Jack Primary Care Physician [phone] Encounter [facility] NBR [id number] Date(s): 04/02/24 - 04/02/24 [facility] Ambulatory Clinics [address] [place], [place] [address] Discharge Disposition: Home Allergies, Adverse Reactions, Alerts Substance Reaction Severity Status codeine hallucinates Severe Active erythromycin Nausea Moderate Active Latex Unknown Unknown Active Assessment and Plan Future Appointments Immunizations Given and Recorded Vaccine Date Status Refusal Reason influenza, unspecified formulation 1 08/19/23 Bhaskar rded influenza, unspecified formulation 08/28/21 Record ed influenza, unspecified formulation 2 07/31/20 Bhaskar rded influenza, unspecified formulation 3 08/06/19 Bhaskar rded influenza, unspecified formulation 4 08/08/18 Bhaskar rded influenza, unspecified formulation 5 07/07/17 Bhaskar rded zoster vaccine, inactivated 6 06/15/22 Recorded zoster vaccine, inactivated 02/10/22 Recorded pneumococcal 23-polyvalent vaccine 7 02/02/22 Bhaskar rded pneumococcal 23-polyvalent vaccine 8 06/17/17 Bhaskar rded SARS-CoV-2 (COVID-19) mRNA-1273 vaccine 9 09/09/21 Recorded pneumococcal 13-valent conjugate vaccine 10 08/22/18 Recorded Td(adult) unspecified formulation 11 04/04/18 Bhaskar rded influenza virus vaccine, inactivated 12 09/03/16 R ecorded influenza virus vaccine, inactivated 08/11/15 Bhaskar rded zoster vaccine live 13 08/13/15 Recorded tetanus/diphth/pertuss (Tdap) adult/adol 01/05/08 Recorded 1Result Comment: high dose 2Result Comment: Unit: Unknown Sugar Presser: Sanof[employer] P[employer] 3Result Comment: Unit: Unknown Sugar Presser: Sanofi Pasteur 4Result Comment: Unit: Unknown Sugar Presser: Sanofi Pasteur 5Result Comment: Unit: Unknown Sugar Presser: Sanofi Pasteur 6Result Comment: Unit: Unknown 7Result Comment: Unit: Unknown Sugar Presser: [employer] 8Result Comment: Unit: Unknown 9Result Comment: Unit: Unknown 10Result Comment: Unit: Unknown Sugar Presser: [employer] 11Result Comment: Unit: Unknown Sugar Presser: Sanofi Pasteur 12Result Comment: Unit: Unknown 13Result Comment: Unit: Unknown Medications Albuterol (Eqv-ProAir HFA) 90 mcg/inh inhalation aerosol 2 puffs, Inhale, QID, PRN as needed for wheezing, # 8.5 g, 11 Refill(s), Pharmacy: [facility] Start Date: 03/03/23 Status: Ordered benzonatate 100 mg oral capsule 100 mg = 1 cap, Oral, every 12 hr, PRN as needed for cough, # 30 cap, 0 Refill(s), [facility], 165.1, cm, 09/14/23 11:36:00 EST, Height, 64.7, kg, 09/14/23 11:50:00 EST, Weight Dosing Start Date: 09/14/23 Status: Ordered Bevespi Aerosphere 9 mcg-4.8 mcg/inh inhalation aerosol 2 puffs, Inhale, BID, 0 Refill(s) Start Date: 09/14/23 Status: Ordered buPROPion 300 mg/24 hours (XL) oral tablet, extended release 300 mg = 1 tab, Oral, every 24 hr, 90 EA, TAKE ONE TABLET BY MOUTH EVERY MORNING, # 90 tab, 4 Refill(s), Pharmacy: [facility] #93, 165.1, cm, 09/14/23 11:36:00 EST, Height, 64.7, kg, 09/14/23 11:50:00 EST, Weight Dosing Start Date: 09/14/23 Stop Date: 12/07/24 Status: Ordered citalopram 40 mg oral tablet 40 mg = 1 tab, Oral, Daily, # 90 tab, 4 Refill(s), Pharmacy: [facility] #93, 165.1, cm, 09/14/23 11:36:00 EST, Height, 64.7, kg, 09/14/23 11:50:00 EST, Weight Dosing Start Date: 10/14/23 Stop Date: 01/06/25 Status: Ordered levothyroxine 75 mcg (0.075 mg) oral tablet 75 mcg = 1 tab, Oral, Daily, # 90 tab, 4 Refill(s), Pharmacy: [facility] #93, 165.1, cm, 09/14/2311:36:00 EST, Height, 64.7, kg, 09/14/23 11:50:00 EST, Weight Dosing Start Date: 09/20/23 Stop Date: 12/13/24 Status: Ordered melatonin 10 mg oral tablet 10 mg = 1 tab, Oral, every night at bedtime, 0 Refill(s) Start Date: 08/24/22 Status: Ordered omeprazole 20 mg oral delayed release capsule 20 mg = 1 cap, Oral, Daily, 90 EA, TAKE ONE CAPSULE BY MOUTH 30 MINUTES BEFORE MORNING MEAL, # 90 cap, 3 Refill(s), Pharmacy: [facility] #93, 165.1, cm, 09/14/23 11:36:00 EST, Height, 64.7, kg, 09/14/23 11:50:00 EST, Weight Dosing Start Date: 09/14/23 Status: Ordered Tylenol Extra Strength 500 mg oral tablet QID, 2 Unknown, 0 Refill(s) Start Date: 08/24/22 Status: Ordered Vitamin D3 1000 intl units oral capsule 25 mcg = 1 cap, Oral, Daily, 1 Unknown, 0 Refill(s) Start Date: 08/24/22 Status: Ordered Problem List Condition Confirmation Course Effective Dates Status H ealth Status Informant Achalasia of esophagus Confirmed Active Bipolar II disorder Confirmed Active Complicated grieving Confirmed Active COPD - Chronic obstructive pulmonary disease Confirmed Active Derangement of knee Confirmed Active Diverticular disease Confirmed Active Dysphagia Confirmed Active Ex-smoker 1 Confirmed Active Gastroesophageal reflux disease Confirmed Active Hearing loss Confirmed Active History of adenomatous polyp of colon Confirmed Active Hyperlipidemia Confirmed Active Hypothyroidism Confirmed Active Insomnia Confirmed Active Posttraumatic stress disorder Confirmed Active Sensorineural hearing loss, bilateral Confirmed Active Vitamin D deficiency Confirmed Active 1Quit 2020. Previously smoked 1ppd for 48yrs. Procedures Procedure Date Related Diagnosis Body Site Status Colonoscopy 1 05/06/21 Completed Colonoscopy 2 05/05/20 Completed Colonoscopy 11/01/19 Completed Cataract surgery of left eye 02/01/17 Completed Colonoscopy 2008 Completed Cholecystectomy Completed left hip fracture repair Completed 1repeat in 2 years 2recall in 1 year Social History Social History Type Response Tobacco Former tobacco user Tobacco Use:. 1 Sex 1quit in 2 years ago Patient Care team information Care Team Personnel Name: Kathryn Orozco APRN Position: Physician Member Role: Primary Care Physician Address: Address: [address] [place] [address] [place] Care Team Related Persons Name: ISA RODRIGUEZ Address: Home [address] [place], [place] [id number] [facility]
--- OUTSIDE RECORDS SUMMARY | 2024-04-06 01:57 | XMS_ITS | Continuity of Care Document ---
Author Name Unknown Organization [facility] Ambulatory Clinics Address [address] [place] [address] Care Team Providers Care Jack Frame Tender Name Role Phone Patrick Espinosa DO Primary Care Physician Encounter [facility] NBR [id number] Date(s): 09/18/23 - 09/18/[address] [facility] Ambulatory Clinics [address] [place], [place] [address] Discharge Disposition: Home Allergies, Adverse Reactions, Alerts [...] Comment: high dose 2Result Comment: Unit: Unknown Cashier Ticket Selling: San[employer]i P[employer] 3Result Comment: Unit: Unknown Cashier Ticket Selling: [employer] 4Result Comment: Unit: Unknown Cashier Ticket Selling: [employer] 5Result Comment: Unit: Unknown Cashier Ticket Selling: [employer] P[employer]ur 6Result Comment: Unit: Unknown 7Result Comment: Unit: Unknown Cashier Ticket Selling: [employer] 8Result Comment: Unit: Unknown 9Result Comment: Unit: Unknown 10Result Comment: Unit: Unknown Cashier Ticket Selling: [employer] 11Result Comment: Unit: Unknown Cashier Ticket Selling: Sanofi Pasteur 12Result Comment: Unit: Unknown 13Result Comment: Unit: Unknown Medications Albuterol (Eqv-ProAir HFA) 90 mcg/inh inhalation aerosol 2 puffs, Inhale, QID, PRN as needed for wheezing, # 8.5 g, 11 Refill(s), Pharmacy: [facility] Start Date: 03/03/23 Status: Ordered benzonatate 100 mg oral capsule 100 mg = 1 cap, Oral, every 12 hr, PRN as needed for cough, # 30 cap, 0 Refill(s), Pharmacy: [facility], 165.1, cm, 09/14/23 11:36:00 EST, Height, [...] MORNING, # 90 tab, 4 Refill(s), [facility]: [facility], 165.1, cm, 09/14/23 11:36:00 EST, Height, 64.7, kg, 09/14/23 11:50:00 EST, Weight Dosing Start Date: 09/14/23 Stop Date: 12/07/24 Status: Ordered citalopram 40 mg oral tablet 40 mg = 1 tab, Oral, Daily, # 90 tab, 4 Refill(s), [facility]: [facility] Start Date: 08/25/22 Stop Date: 11/18/23 Status: Ordered levothyroxine 75 mcg (0.075 mg) oral tablet 75 mcg = 1 tab, Oral, Daily, # 90 tab, 4 Refill(s), Pharmacy: [facility] #93 Start Date: 08/25/22 Stop Date: 11/18/23 Status: Ordered melatonin 10 mg oral tablet 10 mg = 1 tab, Oral, every night at bedtime, 0 Refill(s) Start Date: 08/24/22 Status: Ordered omeprazole 20 mg oral delayed release capsule 20 mg = 1 cap, Oral, Daily, 90 EA, TAKE ONE CAPSULE BY MOUTH 30 MINUTES BEFORE MORNING MEAL, # 90 cap, 3 Refill(s), Pharmacy: [facility] #93, 165.1, cm, 09/14/23 11:36:00 EST, Height, [...] Care team information Care Team Personnel Name: Patrick Janet, DO Position: Physician Member Role: Primary Care Physician Address: Address: [address] [place] [address] [place] Care Team Related Persons Name: ISA RODRIGUEZ Address: Home [address] [place], [place] [id number] [facility]
--- OUTSIDE RECORDS SUMMARY | 2024-04-06 01:57 | XMS_ITS | Continuity of Care Document ---
Author Name Unknown Organization [facility] Address [address] [place] [address] Care Team Providers Care Etl Developer Name Role Phone Patrick Espinosa DO Primary Care Physician [phone] Encounter [facility] NBR [id number] Date(s): 09/14/23 - 09/14/[address] [address]- Encounter Diagnosis Encounter for screening for other metabolic disorders(Final) - Encounter for screening for cardiovascular disorders(Final) - Hypothyroidism, unspecified(Final) - Discharge Disposition: Home or Self Care Attending Physician: Kathryn Orozco APRN Admitting Physician: Kathryn Orozco APRN Allergies, Adverse Reactions, Alerts Substance Reaction Severity [...] Comment: high dose 2Result Comment: Unit: Unknown Product Management Analyst: San[employer]i P[employer]ur 3Result Comment: Unit: Unknown Product Management Analyst: [employer] 4Result Comment: Unit: Unknown Product Management Analyst: San[employer]i P[employer]ur 5Result Comment: Unit: Unknown Product Management Analyst: Sanofi P[employer]ur 6Result Comment: Unit: Unknown 7Result Comment: Unit: Unknown Product Management Analyst: [employer] 8Result Comment: Unit: Unknown 9Result Comment: Unit: Unknown 10Result Comment: Unit: Unknown Product Management Analyst: [employer] 11Result Comment: Unit: Unknown Product Management Analyst: Sanofi Pasteur 12Result Comment: Unit: Unknown 13Result Comment: Unit: Unknown Medications Albuterol (Eqv-ProAir HFA) 90 mcg/inh inhalation aerosol 2 puffs, Inhale, QID, PRN as needed for wheezing, # 8.5 g, 11 Refill(s), Pharmacy: [facility] #93 Start Date: 03/03/23 Status: Ordered benzonatate 100 mg oral capsule 100 mg = 1 cap, Oral, every 12 hr, PRN as needed for cough, # 30 cap, 0 Refill(s), Pharmacy: [facility], 165.1, cm, 09/14/23 11:36:00 EST, Height, [...] MORNING, # 90 tab, 4 Refill(s), Pharmacy: [facility] #93, 165.1, cm, 09/14/23 11:36:00 EST, Height, 64.7, kg, 09/14/23 11:50:00 EST, Weight Dosing Start Date: 09/14/23 Stop Date: 12/07/24 Status: Ordered citalopram 40 mg oral tablet 40 mg = 1 tab, Oral, Daily, # 90 tab, 4 Refill(s), Pharmacy: [facility] #93 Start Date: 08/25/22 Stop Date: 11/18/23 Status: Ordered levothyroxine 75 mcg (0.075 mg) oral tablet 75 mcg = 1 tab, Oral, Daily, # 90 tab, 4 Refill(s), Pharmacy: [facility] #93 Start Date: 08/25/22 Stop Date: 11/18/23 Status: Ordered melatonin 10 mg oral tablet 10 mg = 1 tab, Oral, every night at bedtime, 0 Refill(s) Start Date: 08/24/22 Status: Ordered omeprazole 20 mg oral delayed release capsule 20 mg = 1 cap, Oral, Daily, 90 EA, TAKE ONE CAPSULE BY MOUTH 30 MINUTES BEFORE MORNING MEAL, # 90 cap, 3 Refill(s), Pharmacy: [facility] #93, 165.1, cm, 09/14/23 11:36:00 EST, Height, [...] in 2 years 2recall in 1 year Results Laboratory List Name Date Comprehensive Metabolic Panel (CMP) 09/02 12/23 Lipid Panel 09/14/23 TSH w/ Rflx to Free T4 09/14/23 Most recent to oldest [Reference Range]: 1 BUN [7-25 mg/dL] 19 mg/dL (09/14/23 12:43 PM) Cholesterol Total [<=200 mg/dL] 234 mg/d L *HI* (09/14/23 12:43 PM) LDL 149.0 mg/dL *NA* (09/14/23 12:43 PM) Glucose Level [70-109 mg/dL] 92 mg/dL (09/14/23 12:43 PM) Potassium Level [3.5-5.1 mmol/L] 4.4 mmo l/L (09/14/23 12:43 PM) HDL [23-92 mg/dL] 48 mg/dL (09/14/23 12:43 PM) AST [13-39 IntlUnit/L] 18 IntlUnit/L (09/14/23 12:43 PM) ALT [7-52 IntlUnit/L] 16 IntlUnit/L (09/14/23 12:43 PM) Osmolality [275-295 mOsm/kg] 276 mOsm/kg (09/14/23 12:43 PM) Sodium Level [136-145 mmol/L] 137 mmol/L (09/14/23 12:43 PM) Chol/HDL 4.9 *NA* (09/14/23 12:43 PM) Triglycerides [<=150 mg/dL] 185 mg/dL *HI* (09/14/23 12:43 PM) Calcium Level [8.6-10.3 mg/dL] 10.0 mg/d L (09/14/23 12:43 PM) Albumin Level [3.5-5.7 g/dL] 4.6 g/dL (09/14/23 12:43 PM) Protein Total [6.4-8.9 g/dL] 7.0 g/dL (09/14/23 12:43 PM) Bilirubin Total [0.3-1.0 mg/dL] 0.6 mg/d L (09/14/23 12:43 PM) Alk Phos [34-104 IntlUnit/L] 62 IntlUnit /L (09/14/23 12:43 PM) CO2 [21-31 mmol/L] 28 mmol/L (09/14/23 12:43 PM) TSH [0.45-5.33 mcIntlUnit/mL] 1.12 mcInt lUnit/mL (09/14/23 12:43 PM) Chloride Level [98-107 mmol/L] 101 mmol/ L (09/14/23 12:43 PM) A/G Ratio [1.0-2.5 g/dL] 1.9 g/dL (09/14/23 12:43 PM) BUN/Creat Ratio [8.0-20.0] 17.3 (09/14/23 12:43 PM) Globulin [2.3-3.5 g/dL] 2.4 g/dL (09/14/23 12:43 PM) Creatinine Level [0.60-1.20 mg/dL] 1.10 mg/dL (09/14/23 12:43 PM) Anion Gap [3.0-12.0] 8.0 (09/14/23 12:43 PM) eGFR CKD-EPI [>=60 mL/min/1.73 m2] 53 mL /min/1.73 m2 *LOW* (09/14/23 12:43 PM) Social History Social History Type Response Tobacco Former tobacco user Tobacco Use:. 1 Sex 1quit in 2 years ago Patient Care team information Care Team Personnel Name: Patrick Espinosa DO Position: Physician Member Role: Primary Care Physician Address: Address: [address] [place] [address] [place] Care Team Related Persons Name: ISA RODRIGUEZ Address: Home [address] [place], [place] [id number] [facility]
--- OUTSIDE RECORDS SUMMARY | 2024-04-06 01:57 | XMS_ITS | Continuity of Care Document ---
Author Name Unknown Organization [facility] Ambulatory Clinics Address [address] [place] [address] Care Team Providers Care Cooling Pipe Inspector Name Role Phone Siomara Blas Primary Care Physician Encounter [facility] NBR [id number] Date(s): 08/25/22 - 08/25/22 [facility] Ambulatory Clinics [address] [place], [place] [address] Encounter Diagnosis Screening mammogram for breast cancer(Discharge Diagnosis) - 08/25/22 Screening for colon cancer(Discharge Diagnosis) - 08/25/22 Screening for cardiovascular condition(Discharge Diagnosis) - 08/25/22 Discharge Disposition: Home or Self Care Attending Physician: Siomara Blas APRN Allergies, Adverse Reactions, Alerts Substance Reaction Severity Status codeine hallucinates Severe Active erythromycin Nausea Moderate Active Latex Unknown Unknown Active Assessment and Plan Future Appointments Functional Status 08/25/22 Other exposure to Infectious Disease Non e Immunizations Given and Recorded Vaccine Date Status Refusal Reason zoster vaccine, inactivated 1 06/15/22 Recorded zoster vaccine, inactivated 02/10/22 Recorded pneumococcal 23-polyvalent vaccine 2 02/02/22 Bhaskar rded pneumococcal 23-polyvalent vaccine 3 06/17/17 Bhaskar rded SARS-CoV-2 (COVID-19) mRNA-1273 vaccine 4 09/09/21 Recorded influenza, unspecified formulation 08/28/21 Record ed influenza, unspecified formulation 5 07/31/20 Bhaskar rded influenza, unspecified formulation 6 08/06/19 Bhaskar rded influenza, unspecified formulation 7 08/08/18 Bhaskar rded influenza, unspecified formulation 8 07/07/17 Bhaskar rded pneumococcal 13-valent conjugate vaccine 9 08/22/18 Recorded Td(adult) unspecified formulation 10 04/04/18 Bhaskar rded influenza virus vaccine, inactivated 11 12/2/16 R ecorded influenza virus vaccine, inactivated 08/11/15 Bhaskar rded zoster vaccine live 12 08/13/15 Recorded tetanus/diphth/pertuss (Tdap) adult/adol 01/05/08 Recorded 1Result Comment: Unit: Unknown 2Result Comment: Unit: Unknown Marriage And Family Therapist: [employer] 3Result Comment: Unit: Unknown 4Result Comment: Unit: Unknown 5Result Comment: Unit: Unknown Marriage And Family Therapist: [employer] 6Result Comment: Unit: Unknown Marriage And Family Therapist: Sanofi P[employer]ur 7Result Comment: Unit: Unknown Marriage And Family Therapist: Sanofi P[employer]ur 8Result Comment: Unit: Unknown Marriage And Family Therapist: Sanof[employer] P[employer]ur 9Result Comment: Unit: Unknown Marriage And Family Therapist: [employer] 10Result Comment: Unit: Unknown Marriage And Family Therapist: Sanofi Pasteur 11Result Comment: Unit: Unknown 12Result Comment: Unit: Unknown Medications albuterol 2.5 mg/3 mL (0.083%) inhalation solution TID, 0 Refill(s) Start Date: 08/24/22 Status: Ordered buPROPion 300 mg/24 hours (XL) oral tablet, extended release 300 mg = 1 tab, Oral, every 24 hr, 90 EA, TAKE ONE TABLET BY MOUTH EVERY MORNING, # 90 tab, 4 Refill(s), Pharmacy: [facility] #93 Start Date: 08/25/22 Stop Date: 11/18/23 Status: Ordered citalopram 40 mg oral tablet 40 mg = 1 tab, Oral, Daily, # 90 tab, 4 Refill(s), Pharmacy: [facility] #93 Start Date: 08/25/22 Stop Date: 11/18/23 Status: Ordered levothyroxine 75 mcg (0.075 mg) oral tablet 75 mcg = 1 tab, Oral, Daily, # 90 tab, 4 Refill(s), Pharmacy: [facility] #93 Start Date: 08/25/22 Stop Date: 11/18/23 Status: Ordered melatonin 10 mg oral tablet 0 Refill(s) Start Date: 08/24/22 Status: Ordered omeprazole 20 mg oral delayed release capsule 20 mg = 1 cap, Oral, Daily, 90 EA, TAKE ONE CAPSULE BY MOUTH 30 MINUTES BEFORE MORNING MEAL, # 90 cap, 4 Refill(s), Pharmacy: [facility] #93 Start Date: 08/25/22 Stop Date: 2/16/24 Status: Ordered Symbicort 160 mcg-4.5 mcg/inh inhalation aerosol BID, 2 Unknown, 0 Refill(s) Start Date: 08/24/22 Status: Ordered Trelegy Ellipta 100 mcg-62.5 mcg-25 mcg/inh inhalation powder 60 EA, INHALE TWO PUFFS BY MOUTH EVERY MORNING, 0 Refill(s) Start Date: 08/24/22 Status: Ordered Tylenol Extra Strength 500 mg oral tablet QID, 2 Unknown, 0 Refill(s) Start Date: 08/24/22 Status: Ordered Vitamin D3 1000 intl units oral capsule 1 Unknown, 0 Refill(s) Start Date: 08/24/22 Status: Ordered Problem List Condition Confirmation Course Effective Dates Status H ealth Status Informant Achalasia of esophagus Confirmed Active Bipolar II disorder Confirmed Active Chronic obstructive lung disease Confirmed Active Complicated grieving Confirmed Active Derangement of knee Confirmed Active Diverticular disease Confirmed Active Dysphagia Confirmed Active Gastroesophageal reflux disease Confirmed Active Hearing loss Confirmed Active History of adenomatous polyp of colon Confirmed Active Hyperlipidemia Confirmed Active Hypothyroidism Confirmed Active Posttraumatic stress disorder Confirmed Active Screening status Confirmed Active Sensorineural hearing loss, bilateral Confirmed Active Tobacco dependence syndrome Confirmed Active Vitamin D deficiency Confirmed Active Procedures Procedure Date Related Diagnosis Body Site Status Colonoscopy 1 05/06/21 Completed Colonoscopy 2 05/05/20 Completed Colonoscopy 11/01/19 Completed Cataract surgery of left eye 02/01/17 Completed Colonoscopy 2008 Completed Cholecystectomy Completed left hip fracture repair Completed 1repeat in 2 years 2recall in 1 year Vital Signs Most recent to oldest [Reference Range]: 1 Temperature Tympanic [36.6-37.9 Deg C] 3 6.4 Deg C *LOW* (08/25/22 1:47 PM) Peripheral Pulse Rate [60-100 bpm] 87 bp m (08/25/22 1:47 PM) Blood Pressure [90-140/60-90 mmHg] 140/7 0mmHg (08/25/22 1:47 PM) Weight 64.1 kg (08/25/22 1:47 PM) Weight Measured (lbs) 141.316 lb (08/25/22 1:47 PM) Social History Social History Type Response Tobacco Former tobacco user Tobacco Use:. Sex Hospital Discharge Instructions Follow Up Care 07/08/2022 14:07:47 With:Siomara Blas APRN Address: [address] [place] [address] [address] [place] [address]- When:1 Year Patient Care team information Personnel Name: Siomara Blas APRN Address: Address: [address] [place] [address] [address]
--- OUTSIDE RECORDS SUMMARY | 2024-04-06 01:57 | XMS_ITS | Continuity of Care Document ---
Author Name Unknown Organization [facility] Ambulatory Clinics Address [address] [place] [address] Care Team Providers Care Spindle Setter Name Role Phone Siomara Blas Primary Care Physician [phone] Encounter [facility] FIN NBR [id number] Date(s): 03/03/23 - 03/03/23 [facility] Ambulatory Clinics [address] [place], [place] [address] Discharge Disposition: Home or Self Care Attending Physician: Cher Bianchi MD Allergies, Adverse Reactions, Alerts Substance Reaction Severity Status codeine hallucinates Severe Active erythromycin Nausea Moderate Active Latex Unknown Unknown Active Assessment and Plan Future Appointments Future Scheduled Tests Laboratory* Comprehensive Metabolic Panel 08/29/22 * Lipid Panel 08/29/22 * TSH w/ Rflx to Free T4 08/29/22 Radiology* MG Mammo Screening Bilateral 08/29/22 Functional Status 03/03/23 Other exposure to Infectious Disease Non e [...] Bhaskar rded influenza virus vaccine, inactivated 11 09/03/16 R ecorded influenza virus vaccine, inactivated 08/11/15 Bhaskar rded zoster vaccine live 12 08/13/15 Recorded tetanus/diphth/pertuss (Tdap) adult/adol 01/05/08 Recorded 1Result Comment: Unit: Unknown 2Result Comment: Unit: Unknown Continuous Improvement Coach: [employer] 3Result Comment: Unit: Unknown 4Result Comment: Unit: Unknown 5Result Comment: Unit: Unknown Continuous Improvement Coach: Sanofi Pasteur 6Result Comment: Unit: Unknown Continuous Improvement Coach: Sanofi Pasteur 7Result Comment: Unit: Unknown Continuous Improvement Coach: Sanofi Pasteur 8Result Comment: Unit: Unknown Continuous Improvement Coach: Sanofi Pasteur 9Result Comment: Unit: Unknown Continuous Improvement Coach: [employer] 10Result Comment: Unit: Unknown Continuous Improvement Coach: Sanofi Pasteur 11Result Comment: Unit: Unknown 12Result Comment: Unit: Unknown Medications Albuterol (Eqv-ProAir HFA) 90 mcg/inh inhalation aerosol 2 puffs, Inhale, QID, PRN as needed for wheezing, # 8.5 g, 11 Refill(s), Pharmacy: [email or web address] Start Date: 03/03/23 Status: Ordered buPROPion 300 mg/24 hours (XL) oral tablet, extended release 300 mg = 1 tab, Oral, every 24 hr, 90 EA, TAKE ONE TABLET BY MOUTH EVERY MORNING, # 90 tab, 4 Refill(s), Pharmacy: [email or web address] Start Date: 08/25/22 Stop Date: 11/18/23 Status: Ordered citalopram 40 mg oral tablet 40 mg = 1 tab, Oral, Daily, # 90 tab, 4 Refill(s), Pharmacy: [email or web address] Start Date: 08/25/22 Stop Date: 11/18/23 Status: Ordered levothyroxine 75 mcg (0.075 mg) oral tablet 75 mcg = 1 tab, Oral, Daily, # 90 tab, 4 Refill(s), Pharmacy: [email or web address] Start Date: 08/25/22 Stop Date: 11/18/23 Status: Ordered melatonin 10 mg oral tablet 0 Refill(s) Start Date: 08/24/22 Status: Ordered omeprazole 20 mg oral delayed release capsule 20 mg = 1 cap, Oral, Daily, 90 EA, TAKE ONE CAPSULE BY MOUTH 30 MINUTES BEFORE MORNING MEAL, # 90 cap, 3 Refill(s), Pharmacy: [email or web address] Start Date: 03/03/23 Status: Ordered Trelegy Ellipta 100 mcg-62.5 mcg-25 [...] Most recent to oldest [Reference Range]: 1 Apical Heart Rate [60-100 bpm] 87 bpm (03/03/23 10:43 AM) Blood Pressure [90-140/60-90 mmHg] 124/7 6mmHg (03/03/23 10:43 AM) Weight 63.6 kg (03/03/23 10:43 AM) Weight Measured (lbs) 140.214 lb (03/03/23 10:43 AM) Social History Social History Type Response Tobacco Former tobacco user Tobacco Use:. 1 Sex 1quit in 2 years ago Physician Outpatient Note * Cher Bianchi MD: PERFORM Event Display: Office Clinic Note Physician Authored Date: [id number] CANDACE LEHMAN :1950 Age:73 years Sex:Female Visit Date:03/03/2023 Primary Care Physician: Siomara Blas Chief Complaint Here for my 6 month visit History of Present Illness Ms.??Tim is a??73 year old WHITE female who is here??for a 6 month visit. We discussed her medications, labs, diagnostics, and active problems mentioned below. ?? Review of Systems Constitutional: She denies fever, chills, fatigue or unusual weight loss. Cardiovascular: She denies chest pain, palpitations or syncopal episodes.?? Respiratory: She has no dyspnea, no cough productive of phlegm, no orthopnea or hemoptysis. Gastrointestinal: No nausea, vomiting, diarrhea, or abdominal pain. No blood in her stool.?? Urologic: No urgency, no dysuria, no blood in her urine, no kidney stones.?? Female Reproductive: No abnormal vaginal discharge. No heavy periods. No irregular menses.?? Musculoskeletal: No muscle weakness. Unremarkable. Neurological: No AVERY, confusion, or dizziness; no numbness or tingling; no difficulty speaking or swallowing. Physical Exam Vitals & Measurements HR:??87??(Apical)?? BP:??124/76?? SpO2:??96%?? WT:??63.6??kg?? General: Comfortable, showing no signs of acute distress. HEENT: PERRL, EOMI, Anicteric, No arcus senilis. OP clear,??Full??upper??dentures. Hearing decreased. No hearing aids.?? No facial asymmetry. Neck: Supple. No JVD. No carotid bruits. No cervical, submandibular or supraclavicular lymphadenopathy.?? No thyromegaly. Lungs: Clear. No wheezes, no rales, no rhonchi. Heart: Regular. No Murmurs, rubs or gallops. Chest: No use of accessory muscles in breathing.?? Abdomen: Soft, Nontender. Bowel sounds present.??Lap ccy??scars. Back: No CVAT. No kyphosis. No scoliosis. Extremities: No pretibial/ankle edema. Palpable DP pulses BL. FROM. Spider veins. Skin: No rashes or bruises. Warm and dry. No jaundice. Neurologic: field technical specialist 2-12 intact. Good strength BL U/L extremities. Ambulates w/o assist. No focal motoror?? sensory deficits. Psych: A&Ox3. Mood and affect appropriate. No unusual anxiety or evidence of depression. ?? Assessment/Plan Ordered: Albuterol (Eqv-ProAir HFA) 90 mcg/inh inhalation aerosol, 2 puffs, Inhale, QID, PRN as needed for wheezing, # 8.5 g, 11 Refill(s), Pharmacy: [email or web address] omeprazole 20 mg oral delayed release capsule, 20 mg = 1 cap, Oral, Daily, 90 EA, TAKE ONE CAPSULE BY MOUTH 30 MINUTES BEFORE MORNING MEAL, # 90 cap, 3 Refill(s), Pharmacy: [email or web address] ?? 1. COPD Trelegy Ellipta 100 mcg-62.5 mcg 1 inhalation Daily Albuterol 2 puffs QID prn ?? 2. Hypothyroidism levothyroxine 75 mcg??daily ?? 3. Gastroesophageal reflux disease omeprazole 20 mg??daily ?? 4. Bipolar II disorder Bupropion XL 300 mg Daily Citalopram 40 mg??daily ?? 5. Insomnia/Sleep disorder Melatonin 10mg qhs ?? 6. Vitamin D deficiency Vitamin D3 1000 units daily ?? 7. Ex-smoker Quit 2020.??Previously smoked 1ppd for 48yrs. ?? Problem List/Past Medical History Ongoing Achalasia of esophagus Bipolar II disorder Complicated grieving COPD - Chronic obstructive pulmonary disease Derangement of knee Diverticular disease Dysphagia Ex-smoker Gastroesophageal reflux disease Hearing loss History of adenomatous polyp of colon Hyperlipidemia Hypothyroidism Insomnia Posttraumatic stress disorder Sensorineural hearing loss, bilateral Vitamin D deficiency Historical Procedure/Surgical History ???Colonoscopy (05/07/2021)???Colonoscopy (05/06/2020)???Colonoscopy (11/02/2019)???Cataract surgery of left eye (02/02/2017)???Colonoscopy (2008)???Cholecystectomy???left hip fracture repair Medications Albuterol (Eqv-ProAir HFA) 90 mcg/inh inhalation aerosol, 2 puffs, Inhale, QID, PRN, 11 refills buPROPion 300 mg/24 hours (XL) oral tablet, extended release, 300 mg= 1 tab, Oral, every 24 hr, 4 refills citalopram 40 mg oral tablet, 40 mg= 1 tab, Oral, Daily, 4 refills levothyroxine 75 mcg (0.075 mg) oral tablet, 75 mcg= 1 tab, Oral, Daily, 4 refills melatonin 10 mg oral tablet omeprazole 20 mg oral delayed release capsule, 20 mg= 1 cap, Oral, Daily, 3 refills Trelegy Ellipta 100 mcg-62.5 mcg-25 mcg/inh inhalation powder Tylenol Extra Strength 500 mg oral tablet, QID Vitamin D3 1000 intl units oral capsule Allergies codeine??(hallucinates) erythromycin??(Nausea) Latex??(Unknown) Social History Alcohol Current, 1-2 times per month Electronic Cigarette/Vaping Electronic Cigarette Use: Use, within last 90 days. Type: Nicotine infused. Use per Day: 1-25 Inhales/day. Substance Use Never Tobacco Former tobacco user Tobacco Use:.- Comments: quit in 2 years ago Family History Aneurysm: Grandfather (P). CVA - Cerebrovascular accident: Father. Cancer: Mother. Diabetes mellitus: Grandmother (P). Heart disease: Father, Grandfather (M) and Grandfather (P). Hypertension: Father and Grandfather (P). Tumor: Mother. Immunizations Vaccine Date Status zoster vaccine, inactivated 06/15/2022 Recorded Comments : Unit: Unknown zoster vaccine, inactivated 02/10/2022 Recorded pneumococcal 23-polyvalent vaccine 02/02/2022 Recorded Comments : Unit: Unknown Continuous Improvement Coach: [employer] SARS-CoV-2 (COVID-19) mRNA-1273 vaccine 09/09/2021 Recorded Comments : Unit: Unknown influenza, unspecified formulation 08/28/2021 Recorded influenza, unspecified formulation 07/31/2020 Recorded Comments : Unit: Unknown Continuous Improvement Coach: Sanofi Pasteur influenza, unspecified formulation 08/06/2019 Recorded Comments : Unit: Unknown Continuous Improvement Coach: Sanofi Pasteur pneumococcal 13-valent conjugate vaccine 08/22/2018 Recorded Comments : Unit: Unknown Continuous Improvement Coach: [employer] influenza, unspecified formulation 08/08/2018 Recorded Comments : Unit: Unknown Continuous Improvement Coach: Sanofi Pasteur Td(adult) unspecified formulation 04/04/2018 Recorded Comments : Unit: Unknown Continuous Improvement Coach: Sanofi Pasteur influenza, unspecified formulation 07/07/2017 Recorded Comments : Unit: Unknown Continuous Improvement Coach: Sanofi Pasteur pneumococcal 23-polyvalent vaccine 06/17/2017 Recorded Comments : Unit: Unknown influenza virus vaccine, inactivated 09/03/2016 Recorded Comments : Unit: Unknown zoster vaccine live 08/13/2015 Recorded Comments : Unit: Unknown influenza virus vaccine, inactivated 08/11/2015 Recorded tetanus/diphth/pertuss (Tdap) adult/adol 01/05/2008 Recorded Electronically Signed on 03/03/23 11:26 AM Cher Bianchi MD Patient Care team information Care Team Personnel Name: Siomara Blas Position: Physician Member Role: Primary Care Physician Address: Address: [address] [facility] [address] [place] [address]- Care Team Related Persons Name: ISA RODRIGUEZ Address: Home [address] [place] [address] [facility]
--- OUTSIDE RECORDS SUMMARY | 2024-04-06 01:57 | XMS_ITS | Continuity of Care Document ---
Author Name Unknown Organization [facility] Ambulatory Clinics Address [address] [place] [address] Care Team Providers Care County Agricultural Agent Name Role Phone Patrick Espinosa DO Primary Care Physician [phone] Encounter [facility] FIN NBR [id number] Date(s): 09/14/23 - 09/14/23 [facility] Ambulatory Clinics [address] [place] [address]- Encounter Diagnosis Hypothyroidism(Discharge Diagnosis) - 09/14/23 Screening for cardiovascular condition(Discharge Diagnosis) - 09/14/23 Screening for metabolic disorder(Discharge Diagnosis) - 09/14/23 Discharge Disposition: Home or Self Care Attending Physician: Kathryn Orozco APRN Allergies, Adverse Reactions, Alerts Substance Reaction Severity Status codeine hallucinates Severe Active erythromycin Nausea Moderate Active Latex Unknown Unknown Active Assessment and Plan Future Appointments Functional Status 09/14/23 Other exposure to Infectious Disease Non e [...] Comment: high dose 2Result Comment: Unit: Unknown Weights And Measures Inspector: Sanofi Pasteur 3Result Comment: Unit: Unknown Weights And Measures Inspector: Sanofi Pasteur 4Result Comment: Unit: Unknown Weights And Measures Inspector: Sanofi Pasteur 5Result Comment: Unit: Unknown Weights And Measures Inspector: Sanofi Pasteur 6Result Comment: Unit: Unknown 7Result Comment: Unit: Unknown Weights And Measures Inspector: [employer] 8Result Comment: Unit: Unknown 9Result Comment: Unit: Unknown 10Result Comment: Unit: Unknown Weights And Measures Inspector: [employer] 11Result Comment: Unit: Unknown Weights And Measures Inspector: Sanofi Pasteur 12Result Comment: Unit: Unknown 13Result Comment: Unit: Unknown Medications Albuterol (Eqv-ProAir HFA) 90 mcg/inh inhalation aerosol 2 puffs, Inhale, QID, PRN as needed for wheezing, # 8.5 g, 11 Refill(s), Pharmacy: [facility] Start Date: 03/03/23 Status: Ordered benzonatate 100 mg oral capsule 100 mg = 1 cap, Oral, every 12 hr, PRN as needed for cough, # 30 cap, 0 Refill(s), Pharmacy: [facility], 165.1, cm, 09/14/23 11:36:00 EST, Height, [...] MORNING, # 90 tab, 4 Refill(s), Pharmacy: [facility], 165.1, cm, 09/14/23 11:36:00 EST, Height, 64.7, kg, 09/14/23 11:50:00 EST, Weight Dosing Start Date: 09/14/23 Stop Date: 12/07/24 Status: Ordered citalopram 40 mg oral tablet 40 mg = 1 tab, Oral, Daily, # 90 tab, 4 Refill(s), Pharmacy: [facility] Start Date: 08/25/22 Stop Date: 11/18/23 Status: Ordered levothyroxine 75 mcg (0.075 mg) oral tablet 75 mcg = 1 tab, Oral, Daily, # 90 tab, 4 Refill(s), Pharmacy: [facility] Start Date: 08/25/22 Stop Date: 11/18/23 Status: Ordered melatonin 10 mg oral tablet 10 mg = 1 tab, Oral, every night at bedtime, 0 Refill(s) Start Date: 08/24/22 Status: Ordered omeprazole 20 mg oral delayed release capsule 20 mg = 1 cap, Oral, Daily, 90 EA, TAKE ONE CAPSULE BY MOUTH 30 MINUTES BEFORE MORNING MEAL, # 90 cap, 3 Refill(s), Pharmacy: [facility], 165.1, cm, 09/14/23 11:36:00 EST, Height, [...] Most recent to oldest [Reference Range]: 1 Peripheral Pulse Rate [60-100 bpm] 54 bp m *LOW* (09/14/23 11:36 AM) Blood Pressure [90-140/60-90 mmHg] 126/7 0mmHg (09/14/23 11:36 AM) Mean Arterial Pressure, Cuff [70-110 mmH g] 89 mmHg (09/14/23 11:36 AM) Weight 64.7 kg (09/14/23 11:36 AM) Weight Measured (lbs) 142.639 lb (09/14/23 11:36 AM) Weight Dosing 64.700 kg (09/14/23 11:36 AM) [place] Body Weight Calculated 57 kg (09/14/23 11:36 AM) Height 165.1 cm (09/14/23 11:36 AM) Height/Length Measured (inches) 65 inch (09/14/23 11:36 AM) BSA Measured 1.72 m2 (09/14/23 11:36 AM) Body Mass Index 23.74 kg/m2 (09/14/23 11:36 AM) Social History Social History Type Response Tobacco Former tobacco user Tobacco Use:. 1 Sex 1quit in 2 years ago Patient Care team information Care Team Personnel Name: Patrick Espinosa DO Position: Physician Member Role: Primary Care Physician Address: Address: [address] [place] [address] [place] Care Team Related Persons Name: ISA RODRIGUEZ Address: Home [address] [place], [place] [id number] [facility]
--- NOTE | 2024-04-06 08:00 | DI.CTLCSR_ITS ---
Exam(s) CT CHEST LUNG CANCER SCREEN EXAM: CT CHEST LUNG CANCER SCREEN CLINICAL HISTORY: Screening for lung cancer, FORMER SMOKER, Z87.891 TECHNIQUE: Imaging Protocol: Axial computed tomography images with coronal and sagittal reformatted images were created and reviewed COMPARISON: CT CT CHEST LUNG CANCER SCREEN from 03/25/2023 FINDINGS: Tracheobronchial tree: Patent where visualized. No bronchiectasis. Pulmonary parenchyma: Mild centrilobular emphysematous changes are present. There is biapical scarri ng. No focal consolidating infiltrates are present. Lung Nodules: None. Mediastinum and Nereida: No dominant adenopathy or fluid collection. The esophagus is unremarkable. Thyroid gland: Unremarkable. Lymph nodes: Unremarkable. Pleura: No effusion or pneumothorax. Heart: The heart is not dilated. Coronary artery calcifications are present. No pericardial effusion . Aorta: Thoracic aorta non-dilated.Atherosclerotic calcification is present. Upper abdomen: Unremarkable. Soft Tissues: Unremarkable. Bones: Age-appropriate degenerative changes are seen in the spine. There is now mild compression of the superior endplate of T3. This was not present on the prior examination from 03/25/2023. IMPRESSION: 1. No pulmonary nodules. 2. New mild compression of the superior endplate of T3 since 03/28/2023. Lung RADS Cat 1 - Negative: No nodules and definitely benign nodules Lung-RADS 1.0 CATEGORIES: Category 0 - Prior chest CT exam(s) being located for comparison. Category 1 - Annual screening in 12 months. No nodules or definitely benign nodules. Category 2 - Annual screening in 12 months. Benign appearance. Nodules with low likelihood of becomin g active cancer. Category 3 - 6-month follow-up. Probably benign. Short-term follow-up suggested. Nodules with low lik elihood of becoming active cancer. Category 4A - 3-month follow-up and CT/PET if >8 mm in size. Suspicious finding. Findings which requi re additional testing. Category 4B - Findings which require additional testing and tissue sampling. Suspicious finding. Category 4X - Category 3 or 4 nodules with additional features or imaging findings that increases the suspicion of malignancy. Modifier S- Potentially clinically significant finding. (Non lung cancer) RADIATION DOSE DELIVERED: 71.43mGy.cm Total DLP 71.43mGy.cmTotal DLP DATA REPOSITORY: All CT scans at this facility are submitted to the National Radiology Data Registry (NRDR) Dose Index Registry (DIR) with the [employer] (ACR). RADIATION OPTIMIZATION: All CT scans at this facility use at least one of these dose optimization te chniques: automated exposure control; mA and/or kV adjustment per patient size (includes targeted exa ms where dose is matched to clinical indication); or iterative reconstruction.
== END ==
PROVIDERS: PCP Family Medicine; Visit Provider Student in an Organized Health Care Education/Training Program
DX: Z87.891 Personal history of nicotine dependence (principal); G95.29 Other cord compression
CPT/HCPCS: 71271

== ENCOUNTER 2024-05-10 22:13 | Outpatient (REF) | payer MEDICARE, MEDICAID, SELFPAY ==
[2024-05-10 13:48] LABS: Clarity Cloudy (Clear); Leukocyte Esterase Color Interference (Negative); Nitrite Color Interference (Negative); Specific Gravity 1.015 (1.005-1.025)
[2024-05-10 13:49] LABS: Bilirubin Color Interference (Negative); Blood Color Interference (Negative); Glucose Color Interference mg/dL (Negative); Ketones Color Interference mg/dL (Negative); Urobilinogen Color Interference mg/dL (Up to 0.2)
[2024-05-10 13:54] LABS: Bacteria Rare HPF (Negative); C & S Indicated? Yes; Casts Negative LPF (Negative); Crystals Negative HPF (Negative); Epithelial Cells Few HPF (Negative); Mucus Negative (Negative); RBC 0-2 HPF (0-2); WBC 20-50 HPF (0-5)
== END 2024-05-10 22:14 | disposition home or self-care (01) ==
LOC: LBN 22:13
PROVIDERS: PCP Family Medicine; Visit Provider Nurse Practitioner Family
DX: R39.9 Unspecified symptoms and signs involving the genitourinary system (principal); N30.00 Acute cystitis without hematuria
CPT/HCPCS: 87077; 81003; 81015; 87086; 87186

== ENCOUNTER → 2024-09-20 13:46 | Outpatient (BNVA) | payer MEDICARE, MEDICAID, SELFPAY | PROVIDERS: PCP Family Medicine; Referring Provider Family Medicine; Visit Provider Physician Assistant Surgical | DX: J44.9 Chronic obstructive pulmonary disease, unspecified (principal); F17.210 Nicotine dependence, cigarettes, uncomplicated | CPT/HCPCS: 99214 ==

== ENCOUNTER 2025-04-08 02:41 | Outpatient (CLI) | payer MEDICARE, MEDICAID, SELFPAY ==
--- NOTE | 2025-04-08 07:45 | DI.CTLCSR_ITS ---
Exam(s) CT CHEST LUNG CANCER SCREEN EXAM: CT CHEST LUNG CANCER SCREEN CLINICAL HISTORY: Screening for lung cancer,h/o tobacco abuse,former smoker, z87.891 TECHNIQUE: Imaging Protocol: Axial computed tomography images with coronal and sagittal reformatted images were created and reviewed. Low dose screening protocol. COMPARISON: CT CT CHEST LUNG CANCER SCREEN from 04/06/2024 FINDINGS: Tracheobronchial tree: No bronchiectasis or mucus plugging. Mediastinum and Nereida: No dominant adenopathy or fluid collection. Pulmonary parenchyma: Mild apical scarring. No consolidation or dominant measurable mass. Mild centrilobular emphysematous changes. No significant interstitial changes. Lung Nodules: None. Pleura: No effusion. No pneumothorax. Heart: The heart is not dilated. Mild coronary artery calcifications are seen. No pericardial effusion. Aorta: Thoracic aorta non-dilated. Upper abdomen: Small hiatal hernia. Bones: Minimal compression of the superior endplate of T3 is unchanged. No new fractures. Soft Tissues: Unremarkable. IMPRESSION: No suspicious pulmonary nodules. Lung RADS Cat 1 - Negative: No nodules and definitely benign nodules Lung-RADS 1.0 CATEGORIES: Category 0 - Prior chest CT exam(s) being located for comparison. Category 1 - Annual screening in 12 months. No nodules or definitely benign nodules. Category 2 - Annual screening in 12 months. Benign appearance. Nodules with low likelihood of becoming active cancer. Category 3 - 6-month follow-up. Probably benign. Short-term follow-up suggested. Nodules with low likelihood of becoming active cancer. Category 4A - 3-month follow-up and CT/PET if >8 mm in size. Suspicious finding. Findings which require additional testing. Category 4B - Findings which require additional testing and tissue sampling. Category 4X - Category 3 or 4 nodules with additional features or imaging findings that increases the suspicion of malignancy. Modifier S- Potentially clinically significant findings (non lung cancer) RADIATION DOSE DELIVERED: !Error Total DLP DATA REPOSITORY: All CT scans at this facility are submitted to the National Radiology Data Registry (NRDR) Dose Index Registry (DIR) with the [employer] (ACR). RADIATION OPTIMIZATION: All CT scans at this facility use at least one of these dose optimization techniques: automated exposure control; mA and/or kV adjustment per patient size (includes targeted exams where dose is matched to clinical indication); or iterative reconstruction.
== END 2025-04-08 03:01 ==
PROVIDERS: PCP Family Medicine; Visit Provider Internal Medicine Critical Care Medicine
DX: Z12.2 Encounter for screening for malignant neoplasm of respiratory organs (principal); Z87.891 Personal history of nicotine dependence
CPT/HCPCS: 71271

== ENCOUNTER 2025-09-22 13:44 | Emergency (ER) | payer MEDICARE, MEDICAID, SELFPAY ==
[2025-09-22 13:45] VITALS: BP 138/66; PULSE 81; RESP 20; TEMP 37; O2SAT 96
[2025-09-22 13:52] VITALS: BP 138/66; PULSE 81; RESP 20; TEMP 37; O2SAT 96
--- NOTE | 2025-09-22 14:00 | DI.RAD_ITS ---
Exam(s) XR CHEST 2V PA LATERAL EXAM: XR CHEST 2V PA LATERAL CLINICAL HISTORY: cough with phlegm TECHNIQUE: 2D digital imaging was performed of the chest. Two images were obtained. PA and lateral views were obtained. COMPARISON: CR CHEST 2 VIEWS PA,LAT from 09/27/[address] CHEST LUNG CANCER SCREEN from 04/08/2025 FINDINGS: MEDIASTINUM: Normal. HEART: Normal. PULMONARY VASCULATURE: Normal. LUNGS: There is plate atelectasis in the left lung base. There are no focal consolidating infiltrates. PLEURAL SPACE: No pleural effusion or pneumothorax. BONE:Within normal limits for the patient's age. OTHER FINDINGS:Normal. IMPRESSION: 1. Left lower lobe atelectasis. 2. There are no focal consolidating infiltrates. 3. The preliminary [facility] report was reviewed. DATA REPOSITORY: RADIATION DOSE DELIVERED:
[2025-09-22 15:12] LABS: Abs Immature Grans 0.05 10^3/uL (0.0-0.06); HCT 30.6 % (36.0-46.0); HGB 9.8 g/dL (11.2-15.7); Immature Grans % 0.7 %; MCH 28.8 pg (27.0-33.0); MCHC 32.0 % (32.0-36.0); MCV 90 fL (80-95); MPV 8.5 fL (8.0-11.0); Platelet Count 339 10^3/uL (130-400); RBC 3.40 10^6/uL (3.93-5.22); RDW 12.1 % (11.7-14.6); RDW-SD 40.3 fL; WBC 7.49 10^3/uL (4.4-10.8)
[2025-09-22] MEDS: AZITHROMYCIN 500 MG in Normal Saline 250 ML 250 MG IVPB (15:14)
[2025-09-22] MEDS: methylPREDNISolone SUCC 125 MG VIAL IVP (15:15)
[2025-09-22] MEDS: Albuterol/Ipratropium 3 ML UPD VIAL UPD (15:15)
--- NOTE | 2025-09-22 15:22 | DI.[facility]_ITS ---
PROCEDURE INFORMATION: Exam: XR Chest Exam date and time: 09/22/2025 2:48 PM Age: 75 years old Clinical indication: Cough and other: Cough with phlem TECHNIQUE: Imaging protocol: Radiologic exam of the chest. Views: 2 views. COMPARISON: CT CHEST LUNG CANCER SCREEN 04/08/2025 11:00 AM FINDINGS: Lungs: There is mild platelike atelectasis at the left lung base. Pleural spaces: Unremarkable. No pleural effusion. No pneumothorax. Heart/Mediastinum: Unremarkable. No cardiomegaly. Bones/joints: Unremarkable. IMPRESSION: Left lower lobe atelectatic change. Appearance not typical for consolidation although this is not excludable. Dictated and Authenticated by: Ebony Castro MD. Orderin Candido Hernandez MD
[2025-09-22 15:30] LABS: ALT 14 U/L (10-49); AST 23 U/L (<34); Albumin 4.1 g/dL (3.2-5.0); Alkaline Phosphatase 50 U/L (46-116); Anion Gap 7.7 mmol/L (3-11); BUN 9 mg/dL (9-23); Bilirubin, Total 0.2 mg/dL (0.2-1.2); CO2 28.3 mmol/L (20.0-31.0); Calcium 8.9 mg/dL (8.3-10.6); Chloride 103 mmol/L (98-107); Glucose 112 mg/dL (74-106); Potassium 3.4 mmol/L (3.5-5.1); Sodium 139 mmol/L (136-145); Total Protein 7.0 g/dL (5.7-8.2)
[2025-09-22 15:34] LABS: Troponin I < 3 ng/L (<35)
[2025-09-22] MEDS: Normal Saline 1,000 ML 1000 ML IV (15:53)
[2025-09-22 15:58] LABS: COVID-19 PCR Negative (Negative); RSV PCR Negative (Negative)
[2025-09-22 16:46] LABS: Troponin I < 3 ng/L (<35)
--- NOTE | 2025-09-22 17:11 | W.ED.GENAD ---
Discharge Plan Disposition Patient Disposition: Home Discharge Details Clinical Impression: Laryngitis, Cough, COPD with exacerbation Primary Care Provider: Corazon Prater ED Provider: David Rey Home Meds and New Rx's Prescriptions: New azithromycin 250 mg tablet 250 mg PO DAILY 5 Days Qty: 5 0RF No Action benzonatate 100 mg capsule 100 mg PO BID PRN bupropion HCl 300 mg tablet extended release 24 hr 300 mg PO QAM omeprazole 20 mg capsule,delayed release(DR/EC) 20 mg PO DAILY albuterol sulfate [Proventil HFA] 90 mcg/actuation HFA aerosol inhaler 2 puff inhalation Q6H PRN (Reason: shortness of breath or wheezing) Qty: 8.5 12RF citalopram [Celexa] 40 MG tablet 40 mg PO DAILY Qty: 90 levothyroxine 150 mcg tablet 150 mcg PO DAILY cholecalciferol (vitamin D3) 100 mcg (4,000 unit) capsule 100 mcg PO DAILY Bevespi Aerosphere 9-4.8 mcg HFA aerosol inhaler 2 puff inhalation BID Qty: 32.1 6RF Discharge Instructions Instructions: COPD Exacerbation, Adult ED, Laryngitis ED, Upper respiratory infection in adults - Discharge instructions Additional Instructions: Although you are negative for flu, COVID and RSV, I suspect that your symptoms are still likely secondary to a viral illness. Please be sure to take the prescribed azithromycin as it is a treatment to help with the inflammation related to your COPD, and you received your first dose today so please start the medication tomorrow. Please follow-up with your primary care provider regarding your visit to the emergency department today. Be sure to discuss results of all test performed here today to include radiology, and laboratory testing as well as results for any pending cultures. Should your symptoms worsen, or if you develop new concerning symptoms, please return immediately emergency department for further evaluation. Stand Alone Forms: Portal Information HPI General Date/Time Provider Initiated Documentation: 09/22/25 14:02. HPI Narrative: MDM/Narrative: 75-year-old female with past med history of COPD, presents for evaluation of cough, conjunctivitis, hoarse voice, shortness of breath, x 10 days. Vital signs within normal limits. Physical exam notable for conjunctivitis, bilateral mild wheezing, and frequent cough. Patient presentation most consistent with viral syndrome, with likely COPD exacerbation. Will screen for signs of significant infection, endorgan damage, or evidence of acute bacterial infection such as pneumonia. Will treat for COPD exacerbation with azithromycin, Solu-Medrol, and provided DuoNeb and reassess patient. ED course: Lab evaluation is unremarkable. Patient with significant improvement of her symptoms following administration of DuoNeb. Chest x-ray shows no acute infiltrates. Patient remains hemodynamically stable, and will be stable for discharge. Instructed to return to emergency department for new or worsening symptoms. Disposition: Discharge HPI: 75-year-old female past med history of COPD, presents for evaluation of cough shortness of breath. She states approximate 10 days ago she became ill, noted runny nose, and sore throat. That has since resolved however in the past several days she has developed worsening frequent cough, productive of white sputum which is different than her typical cough, and also reports that yesterday she lost her voice and developed bilateral pinkeye at the same time in both eyes. She denies any associated fever, chills, vomiting, diarrhea, abdominal pain, chest pain or any other new concerning symptoms. ROS: Negative besides as mentioned above Exam: Gen: A&O NAD HEENT: NCAT, EOMI, not icteric. External ears normal. No rhinorrhea. Moist mucous membranes. Bilateral conjunctivitis without exudate Neck: Supple, full range of motion, no observable masses, No meningeal sign. Lungs: No Respiratory distress. Bilateral mild expiratory wheezing. CV: RRR, no edema. Abdomen: Soft, nondistended, No rebound tenderness. MSK: No joint swelling, no redness. Skin: No rashes, petechiae, lesions. Normal color per patient. Neuro: Normal Gait, Grossly intact. Psych: Appropriate for situation. Labs: Laboratory Tests Range/Units 09/22/25 09/22/25 09/22/25 14:55 15:06 15:19 WBC (4.4-10.8) 10^3/uL 7.49 RBC (3.93-5.22) 10^6/uL 3.40 L Hgb (11.2-15.7) g/dL 9.8 L Hct (36.0-46.0) % 30.6 L MCV (80-95) fL 90 MCH (27.0-33.0) pg 28.8 MCHC (32.0-36.0) % 32.0 RDW (11.7-14.6) % 12.1 Plt Count (130-400) 10^3/uL 339 MPV (8.0-11.0) fL 8.5 Immature Gran % % 0.7 Neutrophils % % 67.2 Lymphocytes % % 21.8 Monocytes % % 8.8 Eosinophils % % 1.2 Basophils % % 0.3 Nucleated RBC % (0.0-0.3) % 0.0 Absolute Neutrophils (1.2-6.7) 10^3/uL 5.04 Absolute Lymphocytes (1.2-3.4) 10^3/uL 1.63 Absolute Monocytes (0.1-0.8) 10^3/uL 0.66 Absolute Eosinophils (0.0-0.7) 10^3/uL 0.09 Absolute Basophils (0.0-0.2) 10^3/uL 0.02 Sodium (136-145) mmol/L 139 Potassium (3.5-5.1) mmol/L 3.4 L Chloride (98-107) mmol/L 103 Carbon Dioxide (20.0-31.0) mmol/L 28.3 Anion Gap (3-11) mmol/L 7.7 BUN (9-23) mg/dL 9 Creatinine (0.55-1.02) mg/dL 1.08 H Est GFR (CKD-EPI 2020) (mL/min/1.73m2) 49.51 Glucose (74-106) mg/dL 112 H Calcium (8.3-10.6) mg/dL 8.9 Total Bilirubin (0.2-1.2) mg/dL 0.2 AST (<34) U/L 23 ALT (10-49) U/L 14 Alkaline Phosphatase (46-116) U/L 50 Troponin I Cancelled < 3 NT-Pro-B Natriuret Pep (<300) pg/mL 475 H Total Protein (5.7-8.2) g/dL 7.0 Albumin (3.2-5.0) g/dL 4.1 COVID-19 Source Nasopharynx SARS-CoV-2 (PCR) (Negative) Negative Influenza Type A (PCR) (Negative) Negative Influenza Type B (PCR) (Negative) Negative RSV (PCR) (Negative) Negative Range/Units 09/22/25 16:12 WBC (4.4-10.8) 10^3/uL RBC (3.93-5.22) 10^6/uL Hgb (11.2-15.7) g/dL Hct (36.0-46.0) % MCV (80-95) fL MCH (27.0-33.0) pg MCHC (32.0-36.0) % RDW (11.7-14.6) % Plt Count (130-400) 10^3/uL MPV (8.0-11.0) fL Immature Gran % % Neutrophils % % Lymphocytes % % Monocytes % % Eosinophils % % Basophils % % Nucleated RBC % (0.0-0.3) % Absolute Neutrophils (1.2-6.7) 10^3/uL Absolute Lymphocytes (1.2-3.4) 10^3/uL Absolute Monocytes (0.1-0.8) 10^3/uL Absolute Eosinophils (0.0-0.7) 10^3/uL Absolute Basophils (0.0-0.2) 10^3/uL Sodium (136-145) mmol/L Potassium (3.5-5.1) mmol/L Chloride (98-107) mmol/L Carbon Dioxide (20.0-31.0) mmol/L Anion Gap (3-11) mmol/L BUN (9-23) mg/dL Creatinine (0.55-1.02) mg/dL Est GFR (CKD-EPI 2020) (mL/min/1.73m2) Glucose (74-106) mg/dL Calcium (8.3-10.6) mg/dL Total Bilirubin (0.2-1.2) mg/dL AST (<34) U/L ALT (10-49) U/L Alkaline Phosphatase (46-116) U/L Troponin I < 3 NT-Pro-B Natriuret Pep (<300) pg/mL Total Protein (5.7-8.2) g/dL Albumin (3.2-5.0) g/dL COVID-19 Source SARS-CoV-2 (PCR) (Negative) Influenza Type A (PCR) (Negative) Influenza Type B (PCR) (Negative) RSV (PCR) (Negative) Radiology: Accession No. : [id number] Creator : ISA ALVAREZ Dictator : ISA ALVAREZ [employer] Sales : Clinical Documentation Clerk : ISA ALVAREZ Approver2 : Report Date : 09/22/2025 16:08:44 Exam(s) XR CHEST 2V PA LATERAL EXAM: XR CHEST 2V PA LATERAL CLINICAL HISTORY: cough with phlegm TECHNIQUE: 2D digital imaging was performed of the chest. Two images were obtained. PA and lateral views were obtained. COMPARISON: CR CHEST 2 VIEWS PA,LAT from 09/27/[address] CHEST LUNG CANCER SCREEN from 04/08/2025 FINDINGS: MEDIASTINUM: Normal. HEART: Normal. PULMONARY VASCULATURE: Normal. LUNGS: There is plate atelectasis in the left lung base. There are no focal consolidating infiltrates. PLEURAL SPACE: No pleural effusion or pneumothorax. BONE:Within normal limits for the patient's age. OTHER FINDINGS:Normal. IMPRESSION: 1. Left lower lobe atelectasis. 2. There are no focal consolidating infiltrates. 3. The preliminary [facility] report was reviewed. DATA REPOSITORY: RADIATION DOSE DELIVERED: Related Data Home Medications ?Medication ?Instructions ?Recorded ?Confirmed citalopram 40 mg tablet (Celexa) 40 mg PO DAILY #90 tabs 08/11/15 10/04/24 cholecalciferol (vitamin D3) 100 100 mcg PO DAILY 11/09/21 10/04/24 mcg (4,000 unit) capsule levothyroxine 150 mcg tablet 150 mcg PO DAILY 11/09/21 10/04/24 benzonatate 100 mg capsule 100 mg PO BID PRN 01/27/22 10/04/24 albuterol sulfate 90 mcg/actuation 2 puff inhalation Q6H PRN 08/30/22 10/04/24 aerosol inhaler (Proventil HFA) shortness of breath or wheezing #8.5 grams omeprazole 20 mg capsule,delayed 20 mg PO DAILY 08/30/22 10/04/24 release bupropion HCl 300 mg 24 hr tablet, 300 mg PO QAM 03/03/23 10/04/24 extended release glycopyrrolate 9 mcg-formoterol 2 puff inhalation BID #32.1 grams 08/19/25 4.8 mcg HFA aerosol inhaler (Bevespi Aerosphere) azithromycin 250 mg tablet 250 mg PO DAILY 5 days #5 tabs 09/22/25 Previous Rx's ?Medication ?Instructions ?Recorded albuterol sulfate 90 mcg/actuation 2 puff inhalation Q6H PRN 08/30/22 aerosol inhaler (Proventil HFA) shortness of breath or wheezing #8.5 grams glycopyrrolate 9 mcg-formoterol 2 puff inhalation BID #32.1 grams 08/19/25 4.8 mcg HFA aerosol inhaler (Bevespi Aerosphere) azithromycin 250 mg tablet 250 mg PO DAILY 5 days #5 tabs 09/22/25 Allergies Allergy/AdvReac Type Severity Reaction Status Date / Time Antihistamines - Alkylamine AdvReac Severe Other (See Verified 09/22/25 13:50 Comment) codeine AdvReac Severe HYPERSENSIT Verified 09/22/25 13:50 CONY erythromycin base AdvReac Intermediate NAUSEA Verified 09/22/25 13:50 latex AdvReac Skin Rash Verified 09/22/25 13:50 General Stated Complaint: RespSymp ANALI: 3 Course Vital Signs Vital signs: Vital Signs Temperature 37 C 09/22/25 13:45 Pulse 81 09/22/25 13:45 Respiratory Rate 20 09/22/25 13:45 Blood Pressure 138/66 09/22/25 13:45 Pulse Oximetry 96 09/22/25 13:45 Temperature 37 C 09/22/25 13:52 Temperature Source Temporal Artery Scan 09/22/25 13:52 Pulse 81 09/22/25 13:52 Respiratory Rate 20 09/22/25 13:52 Respiratory Effort Short of Breath 09/22/25 14:57 Blood Pressure 138/66 09/22/25 13:52 Blood Pressure Position Sitting 09/22/25 13:52 Pulse Oximetry 96 09/22/25 13:52 Oxygen Delivery Method Room Air 09/22/25 13:52 Oxygen Flow Rate 0 09/22/25 13:52 Pain Level 5 09/22/25 13:52 Lab/Test Results Lab/Test Results: Laboratory Tests Range/Units 09/22/25 09/22/25 09/22/25 14:55 15:06 15:19 WBC (4.4-10.8) 10^3/uL 7.49 RBC (3.93-5.22) 10^6/uL 3.40 L Hgb (11.2-15.7) g/dL 9.8 L Hct (36.0-46.0) % 30.6 L MCV (80-95) fL 90 MCH (27.0-33.0) pg 28.8 MCHC (32.0-36.0) % 32.0 RDW (11.7-14.6) % 12.1 Plt Count (130-400) 10^3/uL 339 MPV (8.0-11.0) fL 8.5 Immature Gran % % 0.7 Neutrophils % % 67.2 Lymphocytes % % 21.8 Monocytes % % 8.8 Eosinophils % % 1.2 Basophils % % 0.3 Nucleated RBC % (0.0-0.3) % 0.0 Absolute Neutrophils (1.2-6.7) 10^3/uL 5.04 Absolute Lymphocytes (1.2-3.4) 10^3/uL 1.63 Absolute Monocytes (0.1-0.8) 10^3/uL 0.66 Absolute Eosinophils (0.0-0.7) 10^3/uL 0.09 Absolute Basophils (0.0-0.2) 10^3/uL 0.02 Sodium (136-145) mmol/L 139 Potassium (3.5-5.1) mmol/L 3.4 L Chloride (98-107) mmol/L 103 Carbon Dioxide (20.0-31.0) mmol/L 28.3 Anion Gap (3-11) mmol/L 7.7 BUN (9-23) mg/dL 9 Creatinine (0.55-1.02) mg/dL 1.08 H Est GFR (CKD-EPI 2020) (mL/min/1.73m2) 49.51 Glucose (74-106) mg/dL 112 H Calcium (8.3-10.6) mg/dL 8.9 Total Bilirubin (0.2-1.2) mg/dL 0.2 AST (<34) U/L 23 ALT (10-49) U/L 14 Alkaline Phosphatase (46-116) U/L 50 Troponin I Cancelled < 3 NT-Pro-B Natriuret Pep (<300) pg/mL 475 H Total Protein (5.7-8.2) g/dL 7.0 Albumin (3.2-5.0) g/dL 4.1 COVID-19 Source Nasopharynx SARS-CoV-2 (PCR) (Negative) Negative Influenza Type A (PCR) (Negative) Negative Influenza Type B (PCR) (Negative) Negative RSV (PCR) (Negative) Negative Range/Units 09/22/25 16:12 WBC (4.4-10.8) 10^3/uL RBC (3.93-5.22) 10^6/uL Hgb (11.2-15.7) g/dL Hct (36.0-46.0) % MCV (80-95) fL MCH (27.0-33.0) pg MCHC (32.0-36.0) % RDW (11.7-14.6) % Plt Count (130-400) 10^3/uL MPV (8.0-11.0) fL Immature Gran % % Neutrophils % % Lymphocytes % % Monocytes % % Eosinophils % % Basophils % % Nucleated RBC % (0.0-0.3) % Absolute Neutrophils (1.2-6.7) 10^3/uL Absolute Lymphocytes (1.2-3.4) 10^3/uL Absolute Monocytes (0.1-0.8) 10^3/uL Absolute Eosinophils (0.0-0.7) 10^3/uL Absolute Basophils (0.0-0.2) 10^3/uL Sodium (136-145) mmol/L Potassium (3.5-5.1) mmol/L Chloride (98-107) mmol/L Carbon Dioxide (20.0-31.0) mmol/L Anion Gap (3-11) mmol/L BUN (9-23) mg/dL Creatinine (0.55-1.02) mg/dL Est GFR (CKD-EPI 2020) (mL/min/1.73m2) Glucose (74-106) mg/dL Calcium (8.3-10.6) mg/dL Total Bilirubin (0.2-1.2) mg/dL AST (<34) U/L ALT (10-49) U/L Alkaline Phosphatase (46-116) U/L Troponin I < 3 NT-Pro-B Natriuret Pep (<300) pg/mL Total Protein (5.7-8.2) g/dL Albumin (3.2-5.0) g/dL COVID-19 Source SARS-CoV-2 (PCR) (Negative) Influenza Type A (PCR) (Negative) Influenza Type B (PCR) (Negative) RSV (PCR) (Negative) PFSH All Active Problems (Updated 09/22/25 @ 17:12 by David Rey MD) COPD with exacerbation (Acute) Cough (Acute) Laryngitis (Acute) History of tobacco abuse (Acute) Nicotine dependence, unspecified, uncomplicated (Acute) Contusion (Acute) Lumbar contusion (Acute) Cyst of skin (Acute) Status post incision and drainage (Acute ~01/09/19) Infected sebaceous cyst of skin (Acute ~01/08/19) Fracture of femur (Active 02/15/13) Right intertrochanteric fracture of femur with extension of subtrochanteric fracture. Open reduction/internal fixation of intertrocantheric fracture of right femur with extension of subtrochanter extension using intramedullary hip screws by Dr. Alba 02/16/2013. Chronic obstructive lung disease (Active) Depressive disorder (Active) Hypothyroidism (Active) TIA (transient ischemic attack) (Acute) Hypercholesterolemia (Acute) Tobacco abuse (Acute) Medical History (Updated 09/22/25 @ 17:12 by David Rey MD) Pulmonary embolus onset:09/28/2019 Tubular adenoma onset:09/28/2019 Surgical History Fracture, Open Treatment RIGHT HIP ORIF 02.16.13 Cholecystectomy Family History Mother Personal history of malignant neoplasm brain Father , CHF at age 81. Essential hypertension Heart disease Stroke Brother Essential hypertension Grandfather Essential hypertension Heart disease Hyperlipidemia Myocardial infarction Grandfather No problems noted. Grandmother TB (tuberculosis) Grandmother Diabetes Pneumonia Social History (Updated 11/09/21 @ 10:10 by Hannah Mcmahan) Smoking/Tobacco Use Status: Current every day Tobacco Type: cigarettes Smoking packs per day: 1 Smoking cigarettes per day: 20.0 and e-cigarettes Tobacco: How many years used: 40 Smoking risk assessment performed?: Yes Alcohol Intake: current Alcohol Intake frequency: a few times a week Drug use: Never Substance use type: does not use Household members: none current occupation: none Pets and animals: Yes Pets and animals: dog(s) Other: Do you feel safe at home: Yes Do you feel safe in your relationship?: Yes
== END 2025-09-22 17:35 | disposition home or self-care (01) ==
PROVIDERS: Emergency Provider General Practice; PCP Family Medicine
DX: J44.1 Chronic obstructive pulmonary disease with (acute) exacerbation (principal); J02.9 Acute pharyngitis, unspecified; R05.9 Cough, unspecified
CPT/HCPCS: 36415; 80053; 87637; 94640; 96365; 96375; 99285; 71046; 83880; 84484; 85025; 99284; J0456; J2919; J7620